=== PATIENT | male | born 1960 | race Caucasian/White ===

== ENCOUNTER 2019-07-16 13:44 | Emergency (ER) | payer MEDICAID ==
--- NOTE | 2019-07-16 13:59 | ED Physician Documentation ---
PD HPI DYSPNEA - Stated complaint Stated Complaint: SOA - Chief complaint Chief Complaint: Resp - History obtained from History obtained from: Patient - History of Present Illness Timing - onset: How many months ago (4) Timing - duration: Months (4) Timing - details: Gradual onset Improved by: Inhaler/neb Associated symptoms: Cough, Wheezing, Bilateral edema. No: Fever, Chest pain / discomfort, Palpitations Recently seen: Not recently seen - Additional information Additional information: Is a 58-year-old man is a very poor historianIs a 58-year-old man is a very poor historian from the clinic in [place] for evaluation of persistent shortness of breath and wheezing that they been unable to get under control with nebulizers. Patient says that a year ago he had cold that turned into pneumonia he took antibiotics for it and things had improved but about 4 months ago he again started getting some chest congestion and was using nebulizers that provided some relief but he ran out. It is been recently refilled but now he continues wheezing. He is coughing but not bringing up any phlegm despite tasting taking Mucinex. No fever. He denies a sore throat or stuffy nose. He has not had any chest pain and nausea or vomiting. Patient says his legs have been swelling for about a month but he related that to the fact that his TV is to the side of his bed and he frequently sits up on the edge of his bed to watch TV and will fall asleep sitting up. He thinks the swelling has been improving and the nurse practitioner at the clinic had called me and told me they had started him on Lasix. He denies any history of DVT. Denies any heart history of TX or CHF but he to has had a heart murmur in the past. He is not been treated with prednisone. He does admit to 30-year smoking history and quit 10 years ago but continued to use marijuana and meth up until about a month ago. He says he does not need it now that he is patient at the methadone clinic. Review of Systems Constitutional: denies: Fever Eyes: denies: Loss of vision Ears: denies: Ear pain Nose: denies: Congestion Throat: denies: Sore throat Cardiac: reports: Pedal edema. denies: Chest pain / pressure, Palpitations Respiratory: reports: Dyspnea, Cough, Wheezing GI: denies: Nausea, Vomiting : denies: Dysuria, Frequency Skin: reports: Other (Bruising to the abdominal wall due to running into the doorknobs in his new trailer) Musculoskeletal: reports: Extremity swelling. denies: Extremity pain Neurologic: denies: Numbness, Syncope Endocrine: reports: Other (Patient is a not a diabetic) PD PAST MEDICAL HISTORY - Past Medical History Cardiovascular: Hypertension - Past Surgical History Past Surgical History: Yes Ortho: Arthroscopic surgery - Present Medications Home Medications: Ambulatory Orders Medication Instructions Recorded Confirmed HYDROcod/ACETAM 5/325 [[place] 5/325] 1 ea PO Q6H PRN #10 tablet 11/24/15 Cephalexin [Keflex] 500 mg PO Q6H #28 capsule 04/13/16 Ibuprofen [Motrin] 400 mg PO Q6H PRN #30 tablet 04/13/16 Oxycodone HCl/Acetaminophen 1 each PO Q6HR PRN #15 tablet 04/13/16 [Percocet 5-325 mg Tablet] Sulfamethoxazole/Trimethoprim 1 each PO BID #14 tablet 04/13/16 [Bactrim Ds Tablet] predniSONE [Deltasone] 60 mg PO DAILY #15 tablet 07/16/19 - Allergies Allergies/Adverse Reactions: Allergies Allergy/AdvReac Type Severity Reaction Status Date / Time No Known Drug Allergies Allergy Verified 07/16/19 13:49 - Social History Does the pt smoke?: No Smoking Status: Never smoker Does the pt drink ETOH?: Yes Does the pt have substance abuse?: Yes - Immunizations Immunizations are current?: No Immunizations: TDAP >10years/unknown - POLST Patient has POLST: No PD ED PE NORMAL - Vitals Vital signs reviewed: Yes - General General: Alert and oriented X 3, No acute distress, Well developed/nourished, Other (Patient actually falls asleep talking to me in mid sentence.) - HEENT HEENT: Atraumatic, Moist mucous membranes, Other (No scleral icterus) - Neck Neck: No adenopathy - Cardiac Cardiac: RRR, No murmur, Strong equal pulses - Respiratory Respiratory: Other (Patient is able to speak in full sentences. There is audible wheezing and diffuse wheezing heard throughout the lung adorno.) - Abdomen Abdomen: Other (Obese tense abdomen. There is some linear bruising along the right costal margin without tenderness. Exam is limited by his body habitus.) - Derm Derm: Warm and dry. No: Normal color (He has a somewhat ashen complexion) - Extremities Extremities: No: No edema (There is 2+ pitting edema to his knees bilaterally. There is some erythema to the skin consistent with venous stasis. No calf tenderness.) - Neuro Neuro: Alert and oriented X 3, No motor deficit, No sensory deficit, Normal speech Results - Vitals Vitals: Vital Signs - 24 hr 07/16/19 07/16/19 07/16/19 13:49 14:20 14:23 Temperature 36.7 C Heart Rate 83 83 82 Respiratory 24 14 15 Rate Blood Pressure 176/105 H 173/120 H O2 Saturation 97 95 07/16/19 07/16/19 07/16/19 14:45 15:30 16:09 Temperature Heart Rate 79 82 82 Respiratory 15 24 14 Rate Blood Pressure 158/101 H O2 Saturation 100 07/16/19 17:00 Temperature Heart Rate 83 Respiratory 14 Rate Blood Pressure 166/114 H O2 Saturation 96 Oxygen O2 Source Room air - EKG (time done) 1356 Rate: Rate (enter#) (88) Rhythm: NSR Intervals: No: Wide QRS Ischemia: Other (No acute changes evident.) Other comments: Other comments (Artifact limits the evaluation of the EKG slightly.) Compare to prior EKG: Old EKG unavailable - Labs Labs: Laboratory Tests 07/16/19 07/16/19 07/16/19 14:04 14:04 14:04 WBC 6.8 RBC 3.91 L Hgb 11.0 L Hct 35.3 L MCV 90.3 MCH 28.1 MCHC 31.2 L RDW 14.6 Plt Count 188 MPV 9.8 Neut # (Auto) 4.4 Lymph # (Auto) 1.4 L [place] # (Auto) 0.6 Eos # (Auto) 0.4 Baso # (Auto) 0.0 Absolute Nucleated RBC 0.00 Nucleated RBC % 0.0 D-Dimer Bld Gas Analysis Time Sample Site ABG pH ABG pCO2 ABG pO2 ABG HCO3 ABG Total CO2 ABG O2 Saturation ABG Oximetry Spot Check ABG Base Excess Tera Test Room Air Sodium 139 Potassium 3.9 Chloride 101 Carbon Dioxide 28 Anion Gap 10.0 BUN 12 Creatinine 0.8 Estimated GFR (MDRD) 100 Glucose 100 Calcium 8.7 Total Bilirubin 0.8 AST 29 ALT 22 Alkaline Phosphatase 56 Troponin I High Sens 19.5 B-Natriuretic Peptide Total Protein 7.3 Albumin 3.9 Globulin 3.4 Albumin/Globulin Ratio 1.1 Lipase 32 Urine Color Urine Clarity Urine pH Ur Specific [place] Urine Protein Urine Glucose (UA) Urine Ketones Urine Occult Blood Urine Nitrite Urine Bilirubin Urine Urobilinogen Ur Leukocyte Esterase Ur Microscopic Review Urine Culture Comments 07/16/19 07/16/19 07/16/19 14:04 14:04 16:49 WBC RBC Hgb Hct MCV MCH MCHC RDW Plt Count MPV Neut # (Auto) Lymph # (Auto) [place] # (Auto) Eos # (Auto) Baso # (Auto) Absolute Nucleated RBC Nucleated RBC % D-Dimer 253.4 Bld Gas Analysis Time 1657 Sample Site RIGHT RADIAL ABG pH 7.43 ABG pCO2 44 ABG pO2 82 ABG HCO3 28.9 H ABG Total CO2 30.0 H ABG O2 Saturation 96 ABG Oximetry Spot Check 97 ABG Base Excess 5.0 H Tera Test POSITIVE Room Air YES Sodium Potassium Chloride Carbon Dioxide Anion Gap BUN Creatinine Estimated GFR (MDRD) Glucose Calcium Total Bilirubin AST ALT Alkaline Phosphatase Troponin I High Sens B-Natriuretic Peptide 35 Total Protein Albumin Globulin Albumin/Globulin Ratio Lipase Urine Color Urine Clarity Urine pH Ur Specific [place] Urine Protein Urine Glucose (UA) Urine Ketones Urine Occult Blood Urine Nitrite Urine Bilirubin Urine Urobilinogen Ur Leukocyte Esterase Ur Microscopic Review Urine Culture Comments 07/16/19 17:21 WBC RBC Hgb Hct MCV MCH MCHC RDW Plt Count MPV Neut # (Auto) Lymph # (Auto) [place] # (Auto) Eos # (Auto) Baso # (Auto) Absolute Nucleated RBC Nucleated RBC % D-Dimer Bld Gas Analysis Time Sample Site ABG pH ABG pCO2 ABG pO2 ABG HCO3 ABG Total CO2 ABG O2 Saturation ABG Oximetry Spot Check ABG Base Excess Tera Test Room Air Sodium Potassium Chloride Carbon Dioxide Anion Gap BUN Creatinine Estimated GFR (MDRD) Glucose Calcium Total Bilirubin AST ALT Alkaline Phosphatase Troponin I High Sens B-Natriuretic Peptide Total Protein Albumin Globulin Albumin/Globulin Ratio Lipase Urine Color YELLOW Urine Clarity CLEAR Urine pH 6.5 Ur Specific [place] 1.025 Urine Protein NEGATIVE Urine Glucose (UA) NEGATIVE Urine Ketones NEGATIVE Urine Occult Blood NEGATIVE Urine Nitrite NEGATIVE Urine Bilirubin NEGATIVE Urine Urobilinogen 0.2 (NORMAL) Ur Leukocyte Esterase NEGATIVE Ur Microscopic Review NOT INDICATED Urine Culture Comments NOT INDICATED - Rads (name of study) CXR Radiology: See rad report (neg acute) PD MEDICAL DECISION MAKING - ED course ED course: 1436: Patient received a DuoNeb and on auscultation of his lungs sounded somewhat less wheezy. Have ordered an albuterol. Labs and chest x-ray are pending. 1624: Patient remains with diffuse inspiratory next Tory wheezing despite multiple albuterol treatments. He is so somnolent he will just fall asleep sitting in the chair. He is always easily arousable. We talked about admission but he is initially hesitant. His chest x-ray is clear and CBC and BMP are normal. D-dimer is normal. 1707: Patient continued to be very wheezy despite the albuterol's and was so somnolent that I decided to do an ABG to make sure that he was not too hypercapnic. He reiterated that he is unwilling to be admitted to the hospital doctors hospital even though it is been recommended. Has capacity to make his own decision. He will be discharged with prescription for prednisone. He has albuterol at home with a nebulizer that he can use every 4 hours. He needs to follow back up with his primary care provider. He also has blood pressure medications that he should be taking at home says he has not taken that yet today but his blood pressure is quite elevated here. He was given an oral dose of clonidine 0.1 mg. Departure - Departure Disposition: 01 Home, Self Care Clinical Impression: Moderate COPD (chronic obstructive pulmonary disease) Condition: Good Instructions: ED COPD Flare Follow-Up: Leida Gomez ARNP [Primary Care Provider] - Prescriptions: predniSONE [Deltasone] 60 mg PO DAILY #15 tablet Comments: You are declining to be admitted to the hospital doctors hospital despite recommendations that you should stay. Take your albuterol every 4 hours at home by the nebulizer. Start the steroid medication tonight 3 tablets daily. Be sure to take your blood pressure medication at home. Return to the emergency department if you have difficulty breathing that is worse, you develop a fever, you pass out or other problems arise. Otherwise follow-up with your primary care provider for further management.
[2019-07-16] MEDS ORDERED: IPRATROPIUM/ALBUTEROL 3 ML NEB INH STA (14:13)
[2019-07-16] MEDS ORDERED: MAGNESIUM SULFATE 2 GRAM 2 GM/50 ML BAG IV ONE (14:15)
[2019-07-16] MEDS ORDERED: methylPREDNISolone SUCCINATE 125 MG/2 ML VIAL IVP STA (14:15)
[2019-07-16 14:21] LABS: BASOPHILS % (AUTO) 0.4 %; EOSINOPHILS # (AUTO) 0.4 10^3/uL (0.0-0.7); EOSINOPHILS % (AUTO) 5.7 %; LYMPHOCYTES # (AUTO) 1.4 10^3/uL (1.5-3.5); LYMPHOCYTES % (AUTO) 20.5 %; MEAN CORPUSCULAR HEMOGLOBIN 28.1 pg (27.0-31.0); MEAN CORPUSCULAR HGB CONC 31.2 g/dL (32.0-36.0); MEAN CORPUSCULAR VOLUME 90.3 fL (80.0-94.0); MEAN PLATELET VOLUME 9.8 fL (7.4-11.4); MONOCYTES # (AUTO) 0.6 10^3/uL (0.0-1.0); MONOCYTES % (AUTO) 8.2 %; NEUTROPHILS # (AUTO) 4.4 10^3/uL (1.5-6.6); NEUTROPHILS % (AUTO) 64.8 %; PLT - PLATELET COUNT 188 10^3/uL (130-450); RED BLOOD COUNT 3.91 10^6/uL (4.70-6.10); RED CELL DISTRIBUTION WIDTH 14.6 % (12.0-15.0); WHITE BLOOD COUNT 6.8 x10^3/uL (4.8-10.8)
[2019-07-16 14:35] LABS: ALBUMIN 3.9 g/dL (3.2-5.5); ALBUMIN/GLOBULIN RATIO 1.1 (1.0-2.2); BILIRUBIN,TOTAL 0.8 mg/dL (0.2-1.0); CALCIUM 8.7 mg/dL (8.5-10.3); CREATININE 0.8 mg/dL (0.6-1.2); TOTAL PROTEIN 7.3 g/dL (6.7-8.2)
[2019-07-16] MEDS ORDERED: ALBUTEROL NEB 2.5 MG/3 ML INH STA ×2 (14:35→15:33)
--- NOTE | 2019-07-16 14:35 | XRAY Report ---
Reason: chest pain Procedure Date: 07/16/2019 Accession Number: [id number] / [id number] Procedure: XR - Chest 1 View X-Ray CPT Code: 08608 Final Report FULL RESULT: EXAM: CHEST RADIOGRAPHY EXAM DATE: 07/16/2019 02:23 PM. CLINICAL HISTORY: Chest pain. COMPARISON: XR CHEST PA AND LAT 01/23/2009 2:21 PM. TECHNIQUE: 1 view. FINDINGS: Lungs/Pleura: No focal opacities evident. No pleural effusion. No pneumothorax. Mediastinum: Within exam limitations, the cardiomediastinal contour is normal. Other: None. IMPRESSION: Normal single view chest. RADIA
[2019-07-16 17:01] LABS: ABG PH 7.43 (7.35-7.45)
[2019-07-16 17:02] LABS: ABG HCO3 28.9 mmol/L (22.0-26.0); ABG PCO2 44 mmHg (34-45); ABG PO2 82 mmHg (80-100)
[2019-07-16 17:03] LABS: ABG OXYGEN SATURATION 96 % (94-98); ALLEN TEST POSITIVE
[2019-07-16] MEDS ORDERED: cloNIDine 0.1 MG TABLET PO STA (17:13)
[2019-07-16 17:23] LABS: MUDS CUTOFF CONCENTRATIONS CUTOFF CONC BELOW:
[2019-07-16 17:26] LABS: BILIRUBIN,URINE NEGATIVE (NEGATIVE); GLUCOSE, URINE (UA) NEGATIVE (NEGATIVE); KETONES,URINE (UA) NEGATIVE (NEGATIVE); LEUKOCYTE ESTERASE, URINE NEGATIVE (NEGATIVE); NITRITE,URINE NEGATIVE (NEGATIVE); OCCULT BLOOD,URINE NEGATIVE (NEGATIVE); PH,URINE 6.5 PH (5.0-7.5); PROTEIN,URINE NEGATIVE (NEGATIVE); UROBILINOGEN,URINE 0.2 (NORMAL) E.U./dL (NORMAL)
[2019-07-16 17:30] LABS: CLARITY,URINE CLEAR (CLEAR)
[2019-07-16 17:44] LABS: AMPHETAMINE SCREEN,URINE NEGATIVE (NEGATIVE); BENZODIAZEPINES SCREEN, URINE NEGATIVE (NEGATIVE); COCAINE SCREEN URINE NEGATIVE (NEGATIVE); METHADONE SCREEN, URINE POSITIVE (NEGATIVE); METHAMPHETAMINES SCREEN, URINE NEGATIVE (NEGATIVE); OPIATE SCREEN, URINE NEGATIVE (NEGATIVE); OXYCODONE SCREEN, URINE NEGATIVE (NEGATIVE); PROPOXYPHENE SCREEN, URINE NEGATIVE (NEGATIVE); TRICYCLIC ANTIDEPRESSANT,URINE NEGATIVE (NEGATIVE)
[2019-07-16 17:55] VITALS: BP 184/92
== END 2019-07-16 18:04 | disposition home or self-care (01) ==
LOC: ED 13:44
DX: J44.9 Chronic obstructive pulmonary disease, unspecified (principal); R40.0 Somnolence; I10 Essential (primary) hypertension
CPT/HCPCS: 36415; 36600; 71045; 80053; 80306; 81003; 82803; 83690; 83880; 84484; 85025; 85379; 93005; 94640; 96365; 96375; 99284; 99285; A9270; 81001; 87086

== ENCOUNTER 2025-01-04 13:51 | Inpatient (IN) ==
[2025-01-04 14:28] LABS: BASOPHILS % (AUTO) 0.3 %; EOSINOPHILS # (AUTO) 0.1 10^3/uL (0.0-0.7); EOSINOPHILS % (AUTO) 0.9 %; LYMPHOCYTES # (AUTO) 1.4 10^3/uL (1.5-3.5); LYMPHOCYTES % (AUTO) 17.3 %; MEAN CORPUSCULAR HEMOGLOBIN 28.8 pg (27.0-31.0); MEAN CORPUSCULAR HGB CONC 31.6 g/dL (32.0-36.0); MEAN CORPUSCULAR VOLUME 91.3 fL (80.0-94.0); MEAN PLATELET VOLUME 10.2 fL (7.4-11.4); MONOCYTES # (AUTO) 0.6 10^3/uL (0.0-1.0); MONOCYTES % (AUTO) 7.3 %; NEUTROPHILS # (AUTO) 5.9 10^3/uL (1.5-6.6); NEUTROPHILS % (AUTO) 73.9 %; PLT - PLATELET COUNT 200 10^3/uL (130-450); RED BLOOD COUNT 4.16 10^6/uL (4.70-6.10); RED CELL DISTRIBUTION WIDTH 14.1 % (12.0-15.0); WHITE BLOOD COUNT 7.9 x10^3/uL (4.8-10.8)
[2025-01-04 14:49] LABS: ALBUMIN 4.2 g/dL (3.2-5.5); ALBUMIN/GLOBULIN RATIO 1.8 (1.0-2.2); ALKALINE PHOSPHATASE 52 IU/L (42-121); ALT ALANINE AMINOTRANSFERASE 56 IU/L (10-60); AST ASPARTATE AMINOTRANSFERASE 69 IU/L (10-42); BILIRUBIN,TOTAL 0.4 mg/dL (0.2-1.0); BUN - BLOOD UREA NITROGEN 22 mg/dL (6-20); CALCIUM 8.7 mg/dL (8.5-10.3); CARBON DIOXIDE - CO2 27 mmol/L (21-32); CHLORIDE 100 mmol/L (101-111); ETOH - ETHANOL < 10.0 mg/dL; GFR - MDRD 76 (>89); GLUCOSE 104 mg/dL (74-104); SODIUM 134 mmol/L (135-145); TOTAL PROTEIN 6.6 g/dL (6.4-8.9)
[2025-01-04] MEDS: IPRATROPIUM/ALBUTEROL 3 ML NEB INH STA ×2 (14:53→15:35)
--- NOTE | 2025-01-04 15:07 | XRAY Report ---
PROCEDURE: XR Chest 1V INDICATIONS: sob TECHNIQUE: One view of the chest was acquired. COMPARISON: 07/16/2019. FINDINGS: Surgical changes and devices: None. Lungs and pleura: No pleural effusions or pneumothorax. No consolidation. There is eventration of the right hemidiaphragm. Mediastinum: Mediastinal contours appear normal. Heart size is normal. Bones and chest wall: No suspicious bony lesions. Overlying soft tissues appear unremarkable. IMPRESSION: Hyperinflation without acute cardiopulmonary process. New asymmetry of the hemidiaphragms. Reviewed by: Nichole Rashid MD on 01/04/2025 2:05 PM BRY Approved by: Nichole Rashid MD on 01/04/2025 2:05 PM BRY Station ID: [id number]
--- NOTE | 2025-01-04 15:11 | CT Report ---
PROCEDURE: CT Head WO INDICATIONS: head pain after fall TECHNIQUE: CT of the head was performed, without intravenous contrast. Reformats: Coronal and sagittal. For radiation dose reduction, the following was used: automated exposure control, adjustment of mA and/or kV according to patient size. COMPARISON: None. FINDINGS: Image quality: Diagnostic. On the limited by motion artifact. CSF spaces: Basal cisterns are patent. No extra-axial fluid collections. Ventricles are normal in size and shape. Brain: No midline shift. No intracranial mass effect or hemorrhage. Martinez- white matter interface is normal. No significant periventricular white matter hypoattenuation or volume loss. Skull and face: Calvarium and visualized facial bones are intact, without suspicious lesions. Sinuses: Visualized sinuses and mastoids are clear. IMPRESSION: No acute intracranial pathology. Reviewed by: Nichole Rashid MD on 01/04/2025 2:09 PM BRY Approved by: Nichole Rashid MD on 01/04/2025 2:09 PM BRY Station ID: [id number]
--- NOTE | 2025-01-04 15:13 | CT Report ---
PROCEDURE: CT Cervical Spine WO INDICATIONS: neck pain after fall TECHNIQUE: Noncontrast images acquired from the skull base to the T4 level. Sagittal and coronal reformats were then constructed. For radiation dose reduction, the following was used: automated exposure control, adjustment of mA and/or kV according to patient size. COMPARISON: None. FINDINGS: Image quality: Diagnostic. Mildly limited by motion artifact.. Bones: No fractures or dislocations. Visualized superior ribs are intact. There is grade 1 anterolisthesis of C3 on C4 and grade 1 retrolisthesis of C4 on C5 with moderate to severe degenerative changes at these levels. Degenerative changes are seen throughout the cervical spine with osteophytosis and disc space narrowing. Soft tissues: Prevertebral soft tissues are normal in thickness. No paravertebral hematomas. No apical pneumothoraces. IMPRESSION: No acute cervical osseous abnormality. Moderate to severe degenerative disc disease. Reviewed by: Nichole Rashid MD on 01/04/2025 2:12 PM AKDT Approved by: Nichole Rashid MD on 01/04/2025 2:12 PM AKDT Station ID: [id number]
[2025-01-04] MEDS: predniSONE 20 MG TABLET PO STA (15:45)
--- NOTE | 2025-01-04 16:24 | ED Physician Documentation ---
History of Present Illness Stated complaint Stated Complaint: GLF, HEAD STRIKE Chief complaint Chief Complaint: General History obtained from History obtained from: Patient History of Present Illness Timing: Prior to arrival Additonal information Additional information: Patient is a 64-year-old male presenting to the emergency department after a fall and increased shortness of breath going on for the past few days. Patient reports shortness of breath that startedPrior to the fall. He has past medical history remarkable for substance abuse. On arrival he is GCS 15 but mummbling and majority of history obtained from spouse who notes this is baseline and he is being worked up for mental status changes in outpatient setting. Meds/Allgy Home Medications Ambulatory Orders Medication Instructions Recorded Confirmed albuterol sulfate 90 mcg/actuation 2 inh inhalation QI D PRN shortness 01/04/25 01/05/25 aerosol inhaler of breath or wheezing bupropion HCl 300 mg 24 hr tablet, 300 mg PO DAILY 01/05/25 extended release gabapentin 300 mg capsule 300 mg PO DAILY 01/04/25 lisinopril 20 mg tablet 20 mg PO DAILY 01/04/2512/16 metoprolol succinate 50 mg 50 mg PO DAILY 01/04/25 tablet,extended release 24 hr naloxone 4 mg/actuation nasal spray 1 spray intranasal ONCE PRN opioid 01/04/25 01/05/25 overdose rosuvastatin 5 mg tablet 5 mg PO HS 01/04/25 01/04/25 methadone 10 mg/mL oral concentrate 175 mg PO DAILY 01/05/25 Allergies Allergies Allergy/AdvReac Type Severity Reaction Status Date / Time No Known Drug Allergies Allergy Verified 01/04/25 14:03 PFSH Active Problems All Active Problems (Updated 01/04/25 @ 18:35 by Juan Carlos Heart DNP) Asthma exacerbation (Acute) Acute hypoxic respiratory failure (Acute) Breath shortness (Acute) COPD exacerbation (Acute) Hypoxia (Acute) Laceration (Acute) Medical History Medical History (Updated 01/04/25 @ 18:35 by Juan Carlos Heart DNP) History of substance abuse History of alcohol dependence Chronic back pain Chronic neck pain Social History Social History (Updated 12/14/24 @ 22:22 by Farida Garcia RN) Smoking Status: Current some day smoker Number of Years Smoked: 30 Second hand tobacco smoke exposure: Yes Do you dip or chew tobacco?: No Do you vape?: No Patient requests smoking cessation consult: No Living Condition: Alone Relationship: Significant other Level: Assisted Home Mobility Equipment: Wheeled walker and Wheelchair Do you feel safe in your home environment?: Yes Suffered physical, verbal, emotional, or financial abuse?: No History of Abuse: No ETOH Use: None Frequency: Weekly ETOH Use Details: pt states alcoholic, quit using alcohol 6 yrs ago. Substance Use: cannabis (any form), crack/cocaine, amphetamines/met hamphetamines and opiods/painkillers POLST Patient has POLST: No Exam Exam Vital Signs: Vital Signs x48h Pulse Resp BP Pulse Ox O2 Flow Rate 01/04/25 18:00 73 30 H 197/132 H 93 2 Constitutional normal general appearance HENMT normocephalic, head/scalp atraumatic and hearing grossly normal bilaterally Eyes PERRL, EOMs intact bilaterally and conjunctivae normal Results Vitals Vitals: Vital Signs - 24 hr 01/04/25 14:04 01/04/25 14:55 01/04/25 15:03 Temperature 35.6 C L Temperature Source Temporal Artery Scan Pulse Rate 66 68 66 Respiratory Rate 18 20 24 Blood Pressure 173/124 H 172/121 H O2 Saturation 92 92 O2 Source Room air Nasal cannula Nasal cannula If not protocol: Oxygen Flow, liters/minute 2 2 Pain Intensity 9 01/04/25 15:33 01/04/25 15:37 01/04/25 16:15 Temperature Temperature Source Pulse Rate 74 74 80 Respiratory Rate 16 20 17 Blood Pressure 153/99 H O2 Saturation 94 86 L O2 Source Nasal cannula Nasal cannula Room air If not protocol: Oxygen Flow, liters/minute 4 Pain Intensity 01/04/25 16:31 01/04/25 18:00 Temperature Temperature Source Pulse Rate 72 73 Respiratory Rate 20 30 H Blood Pressure 197/132 H O2 Saturation 94 93 O2 Source Nasal cannula Nasal cannula If not protocol: Oxygen Flow, liters/minute 2 2 Pain Intensity 3 Oxygen O2 Source Nasal cannula Labs Labs: Laboratory Tests 01/04/25 01/04/25 01/04/25 14:24 16:40 17:00 WBC 7.9 RBC 4.16 L Hgb 12.0 L Hct 38.0 L MCV 91.3 MCH 28.8 MCHC 31.6 L RDW 14.1 Plt Count 200 MPV 10.2 Neut # (Auto) 5.9 Lymph # (Auto) 1.4 L [place] # (Auto) 0.6 Eos # (Auto) 0.1 Baso # (Auto) 0.0 Absolute Nucleated RBC 0.00 Nucleated RBC % 0.0 VBG pH 7.320 VBG pCO2 57.3 H VBG pO2 100.2 H VBG HCO3 29.8 H VBG Total CO2 31.6 H VBG O2 Saturation 99.0 H VBG Base Excess 3.5 H Sodium 134 L Potassium 4.0 Chloride 100 L Carbon Dioxide 27 Anion Gap 7.0 BUN 22 H Creatinine 1.0 Estimated GFR (MDRD) 76 L Glucose 104 Calcium 8.7 Total Bilirubin 0.4 AST 69 H ALT 56 Alkaline Phosphatase 52 Total Protein 6.6 Albumin 4.2 Globulin 2.4 Albumin/Globulin Ratio 1.8 Urine Color YELLOW Urine Clarity CLEAR Urine pH 6.0 Ur Specific [place] >=1.030 H Urine Protein 30 H Urine Glucose (UA) NEGATIVE Urine Ketones NEGATIVE Urine Occult Blood TRACE-INTA Urine Nitrite NEGATIVE Urine Bilirubin NEGATIVE Urine Urobilinogen 1 (NORMAL) Ur Leukocyte Esterase NEGATIVE Urine RBC 0-5 Urine WBC 0-3 Ur Squamous Epith Cells NONE SEEN Urine Crystals 11-25 Ca Oxalate Urine Bacteria None Seen Ur Microscopic Review INDICATED Urine Culture Comments NOT INDICATED Nasal Adenovirus (PCR) Nasal B. parapertussis DNA (PCR) Nasal Coronavir 229E PCR Nasal Coronavir HKU1 PCR Nasal Coronavir NL63 PCR Nasal Coronavir OC43 PCR Nasal Enterovir/Rhinovir PCR Nasal Influenza B PCR Nasal Influenza A PCR Nasal Parainfluen 1 PCR Nasal Parainfluen 2 PCR Nasal Parainfluen 3 PCR Nasal Parainfluen 4 PCR Nasal RSV (PCR) Nasal B.pertussis DNA PCR Nasal C.pneumoniae (PCR) Cash Human Metapneumo PCR Nasal M.pneumoniae (PCR) Nasal SARS-CoV-2 (PCR) Urine Opiates Screen NEGATIVE Ur Buprenorphine Scrn NEGATIVE Ur Oxycodone Screen NEGATIVE Urine Methadone Screen POSITIVE H Ur Barbiturates Screen NEGATIVE Ur Tricyclics Screen NEGATIVE Ur Phencyclidine Scrn NEGATIVE Ur Amphetamine Screen POSITIVE H U Methamphetamines Scrn POSITIVE H U Benzodiazepines Scrn NEGATIVE Urine Cocaine Screen NEGATIVE U Cannabinoids Screen POSITIVE H Ur Drug Screen Comment CUTOFF CONC BELOW: Ethyl Alcohol < 10.0 01/04/25 17:03 WBC RBC Hgb Hct MCV MCH MCHC RDW Plt Count MPV Neut # (Auto) Lymph # (Auto) [place] # (Auto) Eos # (Auto) Baso # (Auto) Absolute Nucleated RBC Nucleated RBC % VBG pH VBG pCO2 VBG pO2 VBG HCO3 VBG Total CO2 VBG O2 Saturation VBG Base Excess Sodium Potassium Chloride Carbon Dioxide Anion Gap BUN Creatinine Estimated GFR (MDRD) Glucose Calcium Total Bilirubin AST ALT Alkaline Phosphatase Total Protein Albumin Globulin Albumin/Globulin Ratio Urine Color Urine Clarity Urine pH Ur Specific [place] Urine Protein Urine Glucose (UA) Urine Ketones Urine Occult Blood Urine Nitrite Urine Bilirubin Urine Urobilinogen Ur Leukocyte Esterase Urine RBC Urine WBC Ur Squamous Epith Cells Urine Crystals Urine Bacteria Ur Microscopic Review Urine Culture Comments Nasal Adenovirus (PCR) NOT DETECTED Nasal B. parapertussis DNA (PCR) NOT DETECTED Nasal Coronavir 229E PCR NOT DETECTED Nasal Coronavir HKU1 PCR NOT DETECTED Nasal Coronavir NL63 PCR NOT DETECTED Nasal Coronavir OC43 PCR NOT DETECTED Nasal Enterovir/Rhinovir PCR NOT DETECTED Nasal Influenza B PCR NOT DETECTED Nasal Influenza A PCR NOT DETECTED Nasal Parainfluen 1 PCR NOT DETECTED Nasal Parainfluen 2 PCR NOT DETECTED Nasal Parainfluen 3 PCR NOT DETECTED Nasal Parainfluen 4 PCR NOT DETECTED Nasal RSV (PCR) NOT DETECTED Nasal B.pertussis DNA PCR NOT DETECTED Nasal C.pneumoniae (PCR) NOT DETECTED Cash Human Metapneumo PCR NOT DETECTED Nasal M.pneumoniae (PCR) NOT DETECTED Nasal SARS-CoV-2 (PCR) NOT DETECTED Urine Opiates Screen Ur Buprenorphine Scrn Ur Oxycodone Screen Urine Methadone Screen Ur Barbiturates Screen Ur Tricyclics Screen Ur Phencyclidine Scrn Ur Amphetamine Screen U Methamphetamines Scrn U Benzodiazepines Scrn Urine Cocaine Screen U Cannabinoids Screen Ur Drug Screen Comment Ethyl Alcohol PD Medical Decision Making ED course Complexity details: reviewed old records and reviewed results ED course: Patient is a 64-year-old male presenting to the emergency department after a fall and increased shortness of breath going on for the past few days. Patient reports shortness of breath that startedPrior to the fall. He has past medical history remarkable for substance abuse. On arrival he is GCS 15 but mummbling and majority of history obtained from spouse who notes this is baseline and he is being worked up for mental status changes in outpatient setting. Patient remains fatigued here in the ED. His head CT and neck scan showed no acute findings. Patient will be admitted for persistent hypoxia despite two duoneb treatments he remains at 85%. He is agreeable with this plan as is his spouse. He will follow up in the outpatient for these symptoms. Discussed with hospitalist Dr. Tucker who is agreeable with this plan. Discharge Plan Discharge Patient Disposition: 68 [facility] DC/Xfer Condition: Stable Clinical Impression: Hypoxia, COPD exacerbation, Breath shortness Interventions: ED Admission Assessment Last Done: 01/04/25 19:50
[2025-01-04 16:46] LABS: VBG BASE EXCESS 3.5 mmol/L (-2 - +2); VBG PCO2 57.3 mmHg (41-51); VBG PO2 100.2 mmHg (25-47); VBG TOTAL CO2 31.6 mmol/L (24-29)
[2025-01-04 17:16] LABS: COCAINE SCREEN URINE NEGATIVE (NEGATIVE); THC CANNABINOID SCREEN, URINE POSITIVE (NEGATIVE)
[2025-01-04 17:17] LABS: AMPHETAMINE SCREEN,URINE POSITIVE (NEGATIVE); BARBITURATE SCREEN,UR NEGATIVE (NEGATIVE); BENZODIAZEPINES SCREEN, URINE NEGATIVE (NEGATIVE); BUPRENORPHINE SCREEN, URINE NEGATIVE (NEGATIVE); METHADONE SCREEN, URINE POSITIVE (NEGATIVE); METHAMPHETAMINES SCREEN, URINE POSITIVE (NEGATIVE); OPIATE SCREEN, URINE NEGATIVE (NEGATIVE); OXYCODONE SCREEN, URINE NEGATIVE (NEGATIVE); TRICYCLIC ANTIDEPRESSANT,URINE NEGATIVE (NEGATIVE)
--- NOTE | 2025-01-04 17:27 | HISTORY & PHYSICAL EXAMINATION ---
Chief Complaint Chief Complaint Chief Complaint: Dyspnea History of Present Illness Admitted From Admitted From:: Home with History Obtained From History obtained from: at bedside History of Present Illness HPI Comment/Other: 64-year-old male with history of asthma, depression, polysubstance abuse including inhaled fentanyl and methamphetamine, Narcolepsy, NITESH noncompliant with CPAP, other history of bone spurs in the neck needing repair presents after fall. This follows secondary to his polysubstance abuse. Reports hitting head. In the ER, CT head and C-spine were performed without acute abnormality. CT C- spine did show moderate to severe degenerative disc disease, which patient is already supposed to be following up with neurosurgery about in the outpatient setting. Chest x-ray was performed which showed hyperinflation without acute cardiopulmonary process. Patient was given DuoNeb x 2, as well as an oral steroid without any improvement in his respiratory status. Given his history of asthma and negative chest x-ray, hospitalist was contacted for admission for hypoxic respiratory failure secondary to asthma exacerbation Meds/Allgy Home Medications Ambulatory Orders Medication Instructions Recorded Confirmed ibuprofen 400 mg tablet 400 mg PO Q6H PRN Pain #30 t abs 04/13/16 01/04/25 albuterol sulfate 90 mcg/actuation 2 inh inhalation GA N 01/04/25 01/04/25 aerosol inhaler bupropion HCl 300 mg 24 hr tablet, 300 mg PO .OD 01/0401/04/25 extended release gabapentin 300 mg capsule 300 mg PO 01/04/25 lisinopril 20 mg tablet 20 mg PO 01/04/25 metoprolol succinate 50 mg 50 mg PO 01/04/25 tablet,extended release 24 hr naloxone 4 mg/actuation nasal spray 1 spray intranasal PRN opioid 01/04/25 overdose rosuvastatin 5 mg tablet 5 mg PO HS 01/04/25 01/04/25 Allergies Allergies Allergy/AdvReac Type Severity Reaction Status Date / Time No Known Drug Allergies Allergy Verified 01/04/25 14:03 PFSH Active Problems All Active Problems (Updated 01/04/25 @ 18:35 by Juan Carlos Heart DNP) Asthma exacerbation (Acute) Acute hypoxic respiratory failure (Acute) Breath shortness (Acute) COPD exacerbation (Acute) Hypoxia (Acute) Laceration (Acute) Medical History Medical History (Updated 01/04/25 @ 18:35 by Juan Carlos Heart DNP) History of substance abuse History of alcohol dependence Chronic back pain Chronic neck pain Social History Social History (Updated 12/14/24 @ 22:22 by Farida Garcia RN) Smoking Status: Current some day smoker Number of Years Smoked: 30 Second hand tobacco smoke exposure: Yes Do you dip or chew tobacco?: No Do you vape?: No Patient requests smoking cessation consult: No Living Condition: Alone Relationship: Level: Assisted Home Mobility Equipment: Wheeled walker and Wheelchair Do you feel safe in your home environment?: Yes Suffered physical, verbal, emotional, or financial abuse?: No History of Abuse: No ETOH Use: None Frequency: Weekly ETOH Use Details: pt states alcoholic, quit using alcohol 6 yrs ago. Substance Use: cannabis (any form), crack/cocaine, amphetamines/methamphetamines and opiods/painkillers POLST Patient has POLST: No Review of Systems Status of ROS: 10 or more systems reviewed and unremarkable except as noted in history and below Constitutional Denies: Fever or Chills Cardiovascular Reports: shortness of breath with exertion; Denies: chest pain or palpitations Respiratory Reports: Shortness of breath, Cough, Wheezing and Apnea (NITESH); Denies: Sputum production Gastrointestinal Denies: Abdominal pain or Abdominal distention Genitourinary Reports: Flank pain Musculoskeletal Reports: Back pain Neurological Denies: General weakness Allergic/Immunologic Reports: Wheezing Exam Exam Vital Signs: Vital Signs x48h Temp Pulse Pulse Resp BP BP Pulse Ox 01/04/25 20:43 36.6 C 70 17 148/98 H 96 01/04/25 19:50 70 20 190/109 H 93 01/04/25 18:00 73 30 H 197/132 H 93 01/04/25 16:31 72 20 94 01/04/25 16:15 80 17 86 L 01/04/25 15:37 74 20 01/04/25 15:33 74 16 153/99 H 94 01/04/25 15:03 66 24 172/121 H 92 01/04/25 14:55 68 20 01/04/25 14:04 35.6 C L 66 18 173/124 H 92 O2 Flow Rate 01/04/25 20:43 01/04/25 19:50 2 01/04/25 18:00 2 01/04/25 16:31 2 01/04/25 16:15 01/04/25 15:37 01/04/25 15:33 4 01/04/25 15:03 2 01/04/25 14:55 2 01/04/25 14:04 Constitutional Ill-appearing middle-aged male in no acute distress HENMT normocephalic and head/scalp atraumatic Eyes EOMs intact bilaterally and conjunctivae normal Neck/C-Spine cervical spine nontender and cervical full ROM noted Soft c-collar in place Lymph no lymphadenopathy noted Chest inspection of chest normal Respiratory breath sounds equal bilaterally Expiratory wheezes Cardiovascular normal heart rate noted and regular rhythm noted Gastrointestinal abdomen normal to inspection and abdomen soft to palpation Genitourinary CVA tenderness noted Back/Pelvis spine normal to inspection Extremities normal to inspection and normal to palpation Neurology GCS 15 Nods off during interview due to history of narcolepsy combined with polysubstance abuse Psychiatry oriented x3 Skin Scattered abrasions Conclusion/Plan Problem List (1) Acute hypoxic respiratory failure: Plan: Reporting wheezing and dyspnea Chest x-ray on presentation shows hyperinflation without acute process Denies history of COPD, but does report history of asthma Respiratory viral panel negative, this is likely secondary to an asthma exacerbation (2) Asthma exacerbation: Plan: Takes albuterol as needed at home for asthma He received DuoNeb x 2 in the ER DuoNeb RT 4 times daily Pulmicort twice daily Received 60 mg prednisone in the ER, I will continue that daily Lung inflation, bronchodilator protocols ordered (3) History of substance abuse: Plan: Reported snorting fentanyl as well as methamphetamines at home. Also reports cannabis use UDS positive for methadone, amphetamines, cannabinoids Ordered clonidine 0.1 mg p.o. twice daily to help with withdrawal symptoms I am unsure how much of his grogginess is from drug abuse and how much is his narcolepsy and untreated sleep apnea (4) Chronic neck pain: Plan: Wearing a soft c-collar Established with neurosurgery already Reports his neck pain is because of a bone spur in his neck that he is managing in the outpatient setting Plan Admit inpatient med floor Full code His is his surrogate decision-maker Lab Results Lab results reviewed: Yes 01/04/25 14:24 01/04/25 14:24 Diagnostic Imaging Results Diagnostic Imaging Results: positive Final report reviewed Core Measures Anticipated LOS I expect patient to be DC'd or transferred within 96 hours.: Yes DVT/VTE - Prophylaxis VTE/DVT Prophylaxis med ordered at admit?: Yes
[2025-01-04 18:16] LABS: BILIRUBIN,URINE NEGATIVE (NEGATIVE); GLUCOSE, URINE (UA) NEGATIVE (NEGATIVE); KETONES,URINE (UA) NEGATIVE (NEGATIVE); LEUKOCYTE ESTERASE, URINE NEGATIVE (NEGATIVE); NITRITE,URINE NEGATIVE (NEGATIVE); OCCULT BLOOD,URINE TRACE-INTA (NEGATIVE); PROTEIN,URINE 30 mg/dL (NEGATIVE); UROBILINOGEN,URINE 1 (NORMAL) E.U./dL (NORMAL)
[2025-01-04 18:16] LABS: B. PARAPERTUSSIS- RESP PCR PAN NOT DETECTED; B. PERTUSSIS- RESP PCR PANEL NOT DETECTED; C. PNEUMONIAE- RESP PCR PANEL NOT DETECTED; CORONAVIRUS 229E-RESP PCR NOT DETECTED; CORONAVIRUS HKU1-RESP PCR NOT DETECTED; CORONAVIRUS NL63-RESP PCR NOT DETECTED; CORONAVIRUS OC43-RESP PCR NOT DETECTED; HUMAN METAPNEUMOVIRUS NOT DETECTED; INFLUENZA A- RESP PCR PANEL NOT DETECTED; INFLUENZA B - RESP PCR PANEL NOT DETECTED; M. PNEUMONIAE- RESP PCR PANEL NOT DETECTED; PARAINFLUENZA VIRUS 1 NOT DETECTED; PARAINFLUENZA VIRUS 2 NOT DETECTED; PARAINFLUENZA VIRUS 4 NOT DETECTED; RHINOVIRUS/ENTEROVIRUS NOT DETECTED; RSV- RESP PCR PANEL NOT DETECTED; SARS-CoV-2 -RESP PCR PANEL NOT DETECTED
[2025-01-04 18:17] LABS: CLARITY,URINE CLEAR (CLEAR)
[2025-01-04 18:30] LABS: BACTERIA,URINE None Seen /HPF (None Seen); CRYSTALS,URINE 11-25 Ca Oxalate /LPF; RBC,URINE 0-5 /HPF (0-5); SQUAMOUS EPITHELIAL CELL,UR NONE SEEN (<= Few); WBC,URINE 0-3 /HPF (0-3)
[2025-01-04] MEDS ORDERED: ONDANSETRON 4 MG/2 ML VIAL IVP PRN (20:30)
[2025-01-04] MEDS ORDERED: SODIUM CHLORIDE FLUSH 0.9% 10 ML SYRINGE IVP PRN (20:30)
[2025-01-04] MEDS ORDERED: ONDANSETRON ODT 4 MG TABLET TL PRN (20:30)
[2025-01-04] MEDS: ACETAMINOPHEN 325 MG TABLET PO PRN (21:03)
[2025-01-05] MEDS: SODIUM CHLORIDE FLUSH 0.9% 10 ML SYRINGE IVP SCH (00:10)
[2025-01-05] MEDS: cloNIDine 0.1 MG TABLET PO SCH ×2 (00:11→07:34)
[2025-01-05 04:47] LABS: HGB - HEMOGLOBIN 11.9 g/dL (14.0-18.0); LYMPHOCYTES # (AUTO) 0.6 10^3/uL (1.5-3.5); LYMPHOCYTES % (AUTO) 11.4 %; MEAN CORPUSCULAR HEMOGLOBIN 29.2 pg (27.0-31.0); MEAN CORPUSCULAR HGB CONC 32.2 g/dL (32.0-36.0); MEAN CORPUSCULAR VOLUME 90.9 fL (80.0-94.0); MEAN PLATELET VOLUME 10.9 fL (7.4-11.4); MONOCYTES # (AUTO) 0.3 10^3/uL (0.0-1.0); MONOCYTES % (AUTO) 5.1 %; NEUTROPHILS # (AUTO) 4.1 10^3/uL (1.5-6.6); NEUTROPHILS % (AUTO) 83.3 %; PLT - PLATELET COUNT 171 10^3/uL (130-450); RED BLOOD COUNT 4.07 10^6/uL (4.70-6.10); RED CELL DISTRIBUTION WIDTH 13.8 % (12.0-15.0); WHITE BLOOD COUNT 4.9 x10^3/uL (4.8-10.8)
[2025-01-05 05:10] LABS: CALCIUM 8.6 mg/dL (8.5-10.3); POTASSIUM 4.4 mmol/L (3.5-4.5)
[2025-01-05] MEDS: BUDESONIDE 0.5 MG/2 ML NEB INH SCH (07:04)
[2025-01-05] MEDS: IPRATROPIUM/ALBUTEROL 3 ML NEB INH SCH (07:04)
[2025-01-05] MEDS: predniSONE 20 MG TABLET PO SCH (08:13)
[2025-01-05] MEDS: ENOXAPARIN 40 MG/0.4 ML SYRINGE SUBQ SCH (08:14)
--- NOTE | 2025-01-05 12:02 | PHARMACY PROGRESS NOTE ---
Best Possible Medication History Admit Date and Time: 01/04/25 [id number] Home Medications Medication Instructions Recorded Confirmed Type albuterol sulfate 90 mcg/actuation 2 inh inhalation QI D PRN shortness 01/04/25 01/05/25 History aerosol inhaler of breath or wheezing bupropion HCl 300 mg 24 hr tablet, 300 mg PO DAILY 01/05/25 History extended release gabapentin 300 mg capsule 300 mg PO DAILY 01/04/25 History lisinopril 20 mg tablet 20 mg PO DAILY 01/04/2512/16 History metoprolol succinate 50 mg 50 mg PO DAILY 01/04/25 History tablet,extended release 24 hr naloxone 4 mg/actuation nasal spray 1 spray intranasal ONCE PRN opioid 01/04/25 01/05/25 History overdose rosuvastatin 5 mg tablet 5 mg PO HS 01/04/25 01/04/25 History methadone 10 mg/mL oral concentrate 175 mg PO DAILY 01/05/25 History Processed by: Pharmacy Medications reviewed in ED?: No Medication History completed: Yes Patient Interview: Completed Secondary Source(s): Caregiver (Adore @ [facility] [phone]), Pharmacy records and Insurance records [facility] Statement: As the person ultimately responsible for medication therapy, providers are able to order a medication from an existing home medication list in [facility] via the "Reconcile Routine" prior to Confirmation of that medication by learning support aide. Such practice is discouraged except when the physician, in their clinical judgment, deems that a medical need exists for a medication without regard to previous use.
[2025-01-05] MEDS: METHADONE 50 MG/5 ML ORAL SYRINGE PO SCH (13:34)
--- NOTE | 2025-01-05 14:50 | PROVIDER PROGRESS NOTE ---
Subjective Prog Note Date Prog Note Date: 01/05/25 Subjective Pt reports feeling: Improved Current Medications Current Medications Current Medications: Current Medications Generic Name Dose Route Start Last Admin Trade Name Freq PRN Reason Stop Dose Admin Acetaminophen 650 mg 01/04/25 20:30 01/05/25 05:46 Acetaminophen 325 Mg Tablet PO 650 mg Q4HR PRN Administration Pain 1 to 4, or Fever Albuterol/Ipratropium 3 ml 01/05/25 07:00 01/05/25 07:04 Ipratropium/Albuterol 3 Ml Neb INH 3 ml RTQID TONE Administration Budesonide 0.5 mg 01/05/25 07:00 01/05/25 07:04 Budesonide 0.5 Mg/2 Ml Neb INH 0.5 mg RTBID TONE Administration Clonidine HCl 0.1 mg 01/05/25 00:30 01/05/25 08:14 Clonidine 0.1 Mg Tablet PO 0.1 mg BID TONE Administration Enoxaparin Sodium 40 mg 01/05/25 09:00 01/05/25 08:14 Enoxaparin 40 Mg/0.4 Ml Syringe SUBQ 40 mg DAILY TONE Administration Ondansetron HCl 4 mg 01/04/25 20:30 Ondansetron Odt 4 Mg Tablet TL Q6HR PRN Nausea / Vomiting Ondansetron HCl 4 mg 01/04/25 20:30 Ondansetron 4 Mg/2 Ml Vial IVP Q6HR PRN Nausea / Vomiting Prednisone 60 mg 01/05/25 08:00 01/05/25 08:13 Prednisone 20 Mg Tablet PO 60 mg DAILYWM TONE Administration Sodium Chloride 10 ml 01/04/25 20:30 Sodium Chloride Flush 0.9% 10 Ml Syringe IVP PRN PRN NEEDED PER PROVIDER ORDERS Sodium Chloride 10 ml 01/05/25 01:00 01/05/25 08:14 Sodium Chloride Flush 0.9% 10 Ml Syringe IVP 10 ml 0100,0900,1700 TONE Administration Objective Vital Signs/Intake & Output Reviewed Vital Signs: Yes Vital Signs: Vital Signs x48h Temp Pulse Pulse Resp BP Pulse Ox O2 Flow Rate 01/05/25 07:58 36.5 C 65 15 128/80 94 01/05/25 07:07 70 20 2 01/05/25 05:00 36.7 C 68 18 129/79 95 Intake & Output: Intake & Output 01/02/25 01/03/25 01/04/25 01/05/25 23:59 23:59 23:59 23:59 Intake Total 540 / 540 Output Total 600 / 600 Balance -60 / -60 Weight (kg) 85 kg Objective General Appearance: positive No acute distress, Alert and Other (Hunched over forward in bed) Eyes Bilateral: positive Normal inspection ENT: positive ENT inspection nml Neck: positive Nml inspection Respiratory: positive Chest non-tender, No respiratory distress and Wheezes Cardiovascular: positive Regular rate & rhythm Abdomen: positive Non-tender Back: positive Nml inspection Skin: positive Color nml Extremities: positive Non-tender Neurologic/Psychiatric: positive Oriented x3 Lab Results 01/05/25 04:16 01/05/25 04:16 Other Labs: Lab Results x24hrs 01/05/25 01/04/25 01/04/25 Range/Units 04:16 17:03 17:00 WBC 4.9 (4.8-10.8) x10^3/uL RBC 4.07 L (4.70-6.10) 10^6/uL Hgb 11.9 L (14.0-18.0) g/dL Hct 37.0 L (42.0-52.0) % MCV 90.9 (80.0-94.0) fL MCH 29.2 (27.0-31.0) pg MCHC 32.2 (32.0-36.0) g/dL RDW 13.8 (12.0-15.0) % Plt Count 171 (130-450) 10^3/uL MPV 10.9 (7.4-11.4) fL Neut # (Auto) 4.1 (1.5-6.6) 10^3/uL Lymph # (Auto) 0.6 L (1.5-3.5) 10^3/uL Eagle # (Auto) 0.3 (0.0-1.0) 10^3/uL Eos # (Auto) 0.0 (0.0-0.7) 10^3/uL Baso # (Auto) 0.0 (0.0-0.1) 10^3/uL Absolute Nucleated RBC 0.00 x10^3/uL Nucleated RBC % 0.0 /100WBC VBG pH (7.31-7.41) VBG pCO2 (41-51) mmHg VBG pO2 (25-47) mmHg VBG HCO3 (23-28) mmol/L VBG Total CO2 (24-29) mmol/L VBG O2 Saturation (60-80) % VBG Base Excess (-2 - +2) mmol/L Sodium 136 (135-145) mmol/L Potassium 4.4 (3.5-4.5) mmol/L Chloride 102 (101-111) mmol/L Carbon Dioxide 29 (21-32) mmol/L Anion Gap 5.0 L (6-13) BUN 19 (6-20) mg/dL Creatinine 1.0 (0.6-1.3) mg/dL Estimated GFR (MDRD) 76 L (>89) Glucose 132 H (74-104) mg/dL Calcium 8.6 (8.5-10.3) mg/dL Total Bilirubin (0.2-1.0) mg/dL AST (10-42) IU/L ALT (10-60) IU/L Alkaline Phosphatase (42-121) IU/L Total Protein (6.4-8.9) g/dL Albumin (3.2-5.5) g/dL Globulin (2.1-4.2) g/dL Albumin/Globulin Ratio (1.0-2.2) Urine Color YELLOW Urine Clarity CLEAR (CLEAR) Urine pH 6.0 (5.0-7.5) PH Ur Specific [place] >=1.030 H (1.002-1.030) Urine Protein 30 H (NEGATIVE) mg/dL Urine Glucose (UA) NEGATIVE (NEGATIVE) mg/dL Urine Ketones NEGATIVE (NEGATIVE) mg/dL Urine Occult Blood TRACE-INTA (NEGATIVE) Urine Nitrite NEGATIVE (NEGATIVE) Urine Bilirubin NEGATIVE (NEGATIVE) Urine Urobilinogen 1 (NORMAL) (NORMAL) E.U./dL Ur Leukocyte Esterase NEGATIVE (NEGATIVE) Urine RBC 0-5 (0-5) /HPF Urine WBC 0-3 (0-3) /HPF Ur Squamous Epith Cells NONE SEEN (<= Few) Urine Crystals 11-25 Ca Oxalate /LPF Urine Bacteria None Seen (None Seen) /HPF Ur Microscopic Review INDICATED Urine Culture Comments NOT INDICATED Nasal Adenovirus (PCR) NOT DETECTED Nasal B. parapertussis DNA (PCR) NOT DETECTED Nasal Coronavir 229E PCR NOT DETECTED Nasal Coronavir HKU1 PCR NOT DETECTED Nasal Coronavir NL63 PCR NOT DETECTED Nasal Coronavir OC43 PCR NOT DETECTED Nasal Enterovir/Rhinovir PCR NOT DETECTED Nasal Influenza B PCR NOT DETECTED Nasal Influenza A PCR NOT DETECTED Nasal Parainfluen 1 PCR NOT DETECTED Nasal Parainfluen 2 PCR NOT DETECTED Nasal Parainfluen 3 PCR NOT DETECTED Nasal Parainfluen 4 PCR NOT DETECTED Nasal RSV (PCR) NOT DETECTED Nasal B.pertussis DNA PCR NOT DETECTED Nasal C.pneumoniae (PCR) NOT DETECTED Cash Human Metapneumo PCR NOT DETECTED Nasal M.pneumoniae (PCR) NOT DETECTED Nasal SARS-CoV-2 (PCR) NOT DETECTED Urine Opiates Screen NEGATIVE (NEGATIVE) Ur Buprenorphine Scrn NEGATIVE (NEGATIVE) Ur Oxycodone Screen NEGATIVE (NEGATIVE) Urine Methadone Screen POSITIVE H (NEGATIVE) Ur Barbiturates Screen NEGATIVE (NEGATIVE) Ur Tricyclics Screen NEGATIVE (NEGATIVE) Ur Phencyclidine Scrn NEGATIVE (NEGATIVE) Ur Amphetamine Screen POSITIVE H (NEGATIVE) U Methamphetamines Scrn POSITIVE H (NEGATIVE) U Benzodiazepines Scrn NEGATIVE (NEGATIVE) Urine Cocaine Screen NEGATIVE (NEGATIVE) U Cannabinoids Screen POSITIVE H (NEGATIVE) Ur Drug Screen Comment CUTOFF CONC BELOW: Ethyl Alcohol mg/dL 01/04/25 01/04/25 Range/Units 16:40 14:24 WBC 7.9 (4.8-10.8) x10^3/uL RBC 4.16 L (4.70-6.10) 10^6/uL Hgb 12.0 L (14.0-18.0) g/dL Hct 38.0 L (42.0-52.0) % MCV 91.3 (80.0-94.0) fL MCH 28.8 (27.0-31.0) pg MCHC 31.6 L (32.0-36.0) g/dL RDW 14.1 (12.0-15.0) % Plt Count 200 (130-450) 10^3/uL MPV 10.2 (7.4-11.4) fL Neut # (Auto) 5.9 (1.5-6.6) 10^3/uL Lymph # (Auto) 1.4 L (1.5-3.5) 10^3/uL [place] # (Auto) 0.6 (0.0-1.0) 10^3/uL Eos # (Auto) 0.1 (0.0-0.7) 10^3/uL Baso # (Auto) 0.0 (0.0-0.1) 10^3/uL Absolute Nucleated RBC 0.00 x10^3/uL Nucleated RBC % 0.0 /100WBC VBG pH 7.320 (7.31-7.41) VBG pCO2 57.3 H (41-51) mmHg VBG pO2 100.2 H (25-47) mmHg VBG HCO3 29.8 H (23-28) mmol/L VBG Total CO2 31.6 H (24-29) mmol/L VBG O2 Saturation 99.0 H (60-80) % VBG Base Excess 3.5 H (-2 - +2) mmol/L Sodium 134 L (135-145) mmol/L Potassium 4.0 (3.5-4.5) mmol/L Chloride 100 L (101-111) mmol/L Carbon Dioxide 27 (21-32) mmol/L Anion Gap 7.0 (6-13) BUN 22 H (6-20) mg/dL Creatinine 1.0 (0.6-1.3) mg/dL Estimated GFR (MDRD) 76 L (>89) Glucose 104 (74-104) mg/dL Calcium 8.7 (8.5-10.3) mg/dL Total Bilirubin 0.4 (0.2-1.0) mg/dL AST 69 H (10-42) IU/L ALT 56 (10-60) IU/L Alkaline Phosphatase 52 (42-121) IU/L Total Protein 6.6 (6.4-8.9) g/dL Albumin 4.2 (3.2-5.5) g/dL Globulin 2.4 (2.1-4.2) g/dL Albumin/Globulin Ratio 1.8 (1.0-2.2) Urine Color Urine Clarity (CLEAR) Urine pH (5.0-7.5) PH Ur Specific [place] (1.002-1.030) Urine Protein (NEGATIVE) mg/dL Urine Glucose (UA) (NEGATIVE) mg/dL Urine Ketones (NEGATIVE) mg/dL Urine Occult Blood (NEGATIVE) Urine Nitrite (NEGATIVE) Urine Bilirubin (NEGATIVE) Urine Urobilinogen (NORMAL) E.U./dL Ur Leukocyte Esterase (NEGATIVE) Urine RBC (0-5) /HPF Urine WBC (0-3) /HPF Ur Squamous Epith Cells (<= Few) Urine Crystals /LPF Urine Bacteria (None Seen) /HPF Ur Microscopic Review Urine Culture Comments Nasal Adenovirus (PCR) Nasal B. parapertussis DNA (PCR) Nasal Coronavir 229E PCR Nasal Coronavir HKU1 PCR Nasal Coronavir NL63 PCR Nasal Coronavir OC43 PCR Nasal Enterovir/Rhinovir PCR Nasal Influenza B PCR Nasal Influenza A PCR Nasal Parainfluen 1 PCR Nasal Parainfluen 2 PCR Nasal Parainfluen 3 PCR Nasal Parainfluen 4 PCR Nasal RSV (PCR) Nasal B.pertussis DNA PCR Nasal C.pneumoniae (PCR) Cash Human Metapneumo PCR Nasal M.pneumoniae (PCR) Nasal SARS-CoV-2 (PCR) Urine Opiates Screen (NEGATIVE) Ur Buprenorphine Scrn (NEGATIVE) Ur Oxycodone Screen (NEGATIVE) Urine Methadone Screen (NEGATIVE) Ur Barbiturates Screen (NEGATIVE) Ur Tricyclics Screen (NEGATIVE) Ur Phencyclidine Scrn (NEGATIVE) Ur Amphetamine Screen (NEGATIVE) U Methamphetamines Scrn (NEGATIVE) U Benzodiazepines Scrn (NEGATIVE) Urine Cocaine Screen (NEGATIVE) U Cannabinoids Screen (NEGATIVE) Ur Drug Screen Comment Ethyl Alcohol < 10.0 mg/dL Assessment/Plan Problem List (1) Acute hypoxic respiratory failure: Impression: Reporting wheezing and dyspnea Chest x-ray on presentation shows hyperinflation without acute process Denies history of COPD, but does report history of asthma Respiratory viral panel negative, this is likely secondary to an asthma exacerbation Manage as below 01/05/2025: Patient is off and on 2 L O2. Dyspnea has improved. Continuing current management as below, anticipate medical readiness tomorrow (2) Asthma exacerbation: Impression: Takes albuterol as needed at home for asthma He received DuoNeb x 2 in the ER DuoNeb RT 4 times daily Pulmicort twice daily Received 60 mg prednisone in the ER, I will continue that daily Lung inflation, bronchodilator protocols ordered 01/05/2025: Continuing nebs, prednisone 60 mg. (3) History of substance abuse: Impression: Reported snorting fentanyl as well as methamphetamines at home. Also reports cannabis use UDS positive for methadone, amphetamines, cannabinoids Ordered clonidine 0.1 mg p.o. twice daily to help with withdrawal symptoms I am unsure how much of his grogginess is from drug abuse and how much is his narcolepsy and untreated sleep apnea 01/05/2025: Patient reports taking methadone at the [facility]. Pharmacy confirms that he takes 175 daily, we are restarting this (4) Chronic neck pain: Impression: Established with neurosurgery outpatient, no acute concerns
[2025-01-05 23:58] VITALS: O2SAT 94
[2025-01-06 05:07] LABS: BASOPHILS % (AUTO) 0.2 %; EOSINOPHILS % (AUTO) 0.3 %; HCT - HEMATOCRIT 37.7 % (42.0-52.0); HGB - HEMOGLOBIN 11.7 g/dL (14.0-18.0); LYMPHOCYTES # (AUTO) 1.9 10^3/uL (1.5-3.5); LYMPHOCYTES % (AUTO) 21.5 %; MEAN CORPUSCULAR HEMOGLOBIN 29.3 pg (27.0-31.0); MEAN CORPUSCULAR VOLUME 94.3 fL (80.0-94.0); MEAN PLATELET VOLUME 11.1 fL (7.4-11.4); MONOCYTES # (AUTO) 0.8 10^3/uL (0.0-1.0); MONOCYTES % (AUTO) 9.2 %; NEUTROPHILS % (AUTO) 68.6 %; PLT - PLATELET COUNT 176 10^3/uL (130-450); RED CELL DISTRIBUTION WIDTH 14.2 % (12.0-15.0); WHITE BLOOD COUNT 8.8 x10^3/uL (4.8-10.8)
[2025-01-06 05:26] LABS: CALCIUM 8.7 mg/dL (8.5-10.3); CREATININE 1.2 mg/dL (0.6-1.3); POTASSIUM 4.3 mmol/L (3.5-4.5)
--- NOTE | 2025-01-06 11:11 | Discharge Summary ---
Discharge Summary Admit Date: 01/04/25 Discharge Date: 01/06/25 Discharging Provider: Juan Carlos Heart NP Primary Care Provider: Briseida Vallceillo Code Status: Attempt Resuscitation DIAGNOSES Admission Diagnoses: Acute hypoxemic respiratory failure Asthma exacerbation History of substance abuse Chronic neck pain Discharge Diagnoses with Status of Each Condition: Acute hypoxemic respiratory failureresolved Asthma exacerbationresolved, discharging on steroids History of substance abusechronic Chronic neck painalready established with neurosurgery HPI History of Present Illness: 64-year-old male with history of asthma, depression, polysubstance abuse including inhaled fentanyl and methamphetamine, Narcolepsy, NITESH noncompliant with CPAP, other history of bone spurs in the neck needing repair presents after fall. This follows secondary to his polysubstance abuse. Reports hitting head. In the ER, CT head and C-spine were performed without acute abnormality. CT C- spine did show moderate to severe degenerative disc disease, which patient is already supposed to be following up with neurosurgery about in the outpatient setting. Chest x-ray was performed which showed hyperinflation without acute cardiopulmonary process. Patient was given DuoNeb x 2, as well as an oral steroid without any improvement in his respiratory status. Given his history of asthma and negative chest x-ray, hospitalist was contacted for admission for hypoxic respiratory failure secondary to asthma exacerbation HOSPITAL COURSE Hospital Course: Patient was admitted in the hospital and started on high-dose steroid. Over 2 days, his oxygen requirements decreased, and he is now on room air. His dyspnea has significantly improved. He is being discharged with another few days of prednisone 60 mg p.o. daily and have started him on Pulmicort twice daily. He has been instructed to follow-up with his primary care provider to ensure resolution and to further manage his asthma at home ALLERGIES Allergies Allergy/AdvReac Type Severity Reaction Status Date / Time No Known Drug Allergies Allergy Verified 01/04/25 14:03 MEDICATIONS Ambulatory Orders Medication Instructions Recorded Confirmed albuterol sulfate 90 mcg/actuation 2 inh inhalation QI D PRN shortness 01/04/25 01/05/25 aerosol inhaler of breath or wheezing bupropion HCl 300 mg 24 hr tablet, 300 mg PO DAILY 01/05/25 extended release gabapentin 300 mg capsule 300 mg PO DAILY 01/04/25 lisinopril 20 mg tablet 20 mg PO DAILY 01/04/2512/16/25 metoprolol succinate 50 mg 50 mg PO DAILY 01/04/25 tablet,extended release 24 hr naloxone 4 mg/actuation nasal spray 1 spray intranasal ONCE PRN opioid 01/04/25 01/05/25 overdose rosuvastatin 5 mg tablet 5 mg PO HS 01/04/25 01/04/25 methadone 10 mg/mL oral concentrate 175 mg PO DAILY 01/05/25 budesonide 90 mcg/actuation breath 1 inh inhalation BI D #1 ea 01/06/25 activated powder inhaler prednisone 20 mg tablet 60 mg (3 x 20 mg) PO DAILYWM 3 01/06/25 days #9 tabs PHYSICAL EXAM AT DISCHARGE Vital Signs: Vital Signs x48h Temp Pulse Pulse Resp BP Pulse Ox 01/06/25 12:39 70 18 01/06/25 12:33 36.7 C 80 18 163/91 H 94 01/06/25 09:38 90 16 General Appearance: positive No acute distress and Alert Eyes Bilateral: positive Normal inspection ENT: positive ENT inspection nml Neck: positive Nml inspection Respiratory: positive Chest non-tender and No respiratory distress Cardiovascular: positive Regular rate & rhythm and No murmur Peripheral Pulses: positive 2+ Abdomen: positive Non-tender Skin: positive Color nml Extremities: positive Non-tender Neurologic/Psychiatric: positive Oriented x3 LABS 01/06/25 04:45 01/06/25 04:45 FOLLOW UP Follow Up: With PCP TIME SPENT Time Spent in Discharge (Minutes): 34 Discharge Plan Discharge Patient Disposition: Home, Self Care Condition: Stable Prescriptions: New prednisone 20 mg Tablet 60 mg PO DAILYWM 3 Days Qty: 9 0RF budesonide 90 mcg/actuation aerosol powdr breath activated 1 inh inhalation BID Qty: 1 2RF Continued metoprolol succinate 50 mg tablet extended release 24 hr 50 mg PO DAILY lisinopril 20 mg tablet 20 mg PO DAILY gabapentin 300 mg capsule 300 mg PO DAILY albuterol sulfate 90 mcg/actuation HFA aerosol inhaler 2 inh INHALATION QID PRN (Reason: shortness of breath or wheezing) rosuvastatin 5 mg tablet 5 mg PO HS bupropion HCl 300 mg tablet extended release 24 hr 300 mg PO DAILY naloxone 4 mg/actuation spray,non-aerosol 1 spray INTRANASAL ONCE PRN (Reason: opioid overdose) methadone 10 mg/mL concentrate 175 mg PO DAILY Activity Restrictions: No Restrictions Diet: Regular Health Concerns: You came to the hospital because you are having difficulty breathing. You were found to be in an asthma exacerbation. You were held in the hospital so we could watch your oxygen while starting you on very high-dose steroids. Your oxygen levels have improved, and you are now safe to discharge home. I am sending you home with a few more days of an oral steroid. Please take as directed until the bottle is empty. I am also starting you on an inhaled steroid that I would like for you to take twice daily. Please follow-up with your primary care provider to ensure resolution of this problem, and for further management of your asthma Print Language: Ukrainian Patient Instructions: Inhaler Steroid Steps Stand Alone Forms: PCP List
[2025-01-06 12:34] VITALS: BP 163/91; TEMP 98.1
== END 2025-01-06 12:50 | disposition home or self-care (01) | DRG 189 ==
LOC: ED 13:51 → MS2 18:41 → MS3 19:52
PROVIDERS: ADMIT Nurse Practitioner Acute Care; ATTEND Nurse Practitioner Acute Care
DX: Z20.818 Contact with and (suspected) exposure to other bacterial communicable diseases; M77.8 Other enthesopathies, not elsewhere classified; G89.29 Other chronic pain; Z91.81 History of falling; F11.10 Opioid abuse, uncomplicated; F15.10 Other stimulant abuse, uncomplicated; Z79.899 Other long term (current) drug therapy; G47.419 Narcolepsy without cataplexy; Z20.828 Contact with and (suspected) exposure to other viral communicable diseases; G47.33 Obstructive sleep apnea (adult) (pediatric); Z79.52 Long term (current) use of systemic steroids; J96.01 Acute respiratory failure with hypoxia; F32.A Depression, unspecified; M54.9 Dorsalgia, unspecified; Z20.822 Contact with and (suspected) exposure to COVID-19; F17.200 Nicotine dependence, unspecified, uncomplicated; M50.30 Other cervical disc degeneration, unspecified cervical region; F10.21 Alcohol dependence, in remission; J45.901 Unspecified asthma with (acute) exacerbation

== ENCOUNTER 2025-04-06 09:40 | Inpatient (IN) ==
--- NOTE | 2025-04-06 09:49 | ED Physician Documentation ---
History of Present Illness Stated complaint Stated Complaint: SOA Chief complaint Chief Complaint: Resp History obtained from History obtained from: Patient and EMS Additonal information Additional information: 64-year-old male presents to the emergency department complaining of shortness of breath. Brought in by EMS. He states that he has been short of breath for the past week or so. History of polysubstance abuse. He states he has an albuterol inhaler but it has not been helping. He was hypoxic upon arrival with EMS, given a DuoNeb treatment and 125 mg of Solu-Medrol with EMS. He states he does not think that he has had fevers. He states he is feeling better since the first breathing treatment. Review of Systems Constitutional Denies: Fever or Chills Gastrointestinal Denies: Abdominal pain, Nausea or Vomiting Meds/Allgy Home Medications Ambulatory Orders Medication Instructions Recorded Confirmed albuterol sulfate 90 mcg/actuation 2 inh inhalation QI D PRN shortness 01/04/25 04/06/25 aerosol inhaler of breath or wheezing bupropion HCl 300 mg 24 hr tablet, 300 mg PO DAILY 04/06/25 extended release gabapentin 300 mg capsule 300 mg PO DAILY 01/04/25 lisinopril 20 mg tablet 20 mg PO DAILY 01/04/2503/18 metoprolol succinate 50 mg 50 mg PO DAILY 01/04/25 tablet,extended release 24 hr naloxone 4 mg/actuation nasal spray 1 spray intranasal ONCE PRN opioid 01/04/25 04/06/25 overdose rosuvastatin 5 mg tablet 5 mg PO HS 01/04/25 04/06/25 methadone 10 mg/mL oral concentrate 175 mg PO DAILY 04/06/25 budesonide 90 mcg/actuation breath 1 inh inhalation BI D #1 ea 01/06/25 04/06/25 activated powder inhaler apixaban 5 mg tablet (Eliquis) 5 mg PO BID 30 days #60 tabs 01/22/25 04/06/25 Allergies Allergies Allergy/AdvReac Type Severity Reaction Status Date / Time No Known Drug Allergies Allergy Verified 03/24/25 13:47 PFSH Active Problems All Active Problems (Updated 04/06/25 @ 13:53 by ANUSHA George) Hypoxia (Acute) COPD exacerbation (Acute) Atrial fibrillation (Acute) Polysubstance abuse (Acute) Cellulitis of leg, right (Acute) Laceration (Acute) Medical History Medical History (Updated 04/06/25 @ 13:53 by ANUSHA George) Acute hypoxic respiratory failure History of substance abuse History of alcohol dependence Chronic back pain Chronic neck pain Social History Social History (Updated 12/14/24 @ 22:22 by Farida Garcia RN) Smoking Status: Unknown if ever smoked If you are a former smoker, when did you quit? (Date/Year): Quit 30 years ago Number of Years Smoked: 2 Second hand tobacco smoke exposure: Yes Do you dip or chew tobacco?: No Do you vape?: No Patient requests smoking cessation consult: No Initiate information on smoking cessation: No Living Condition: Alone Level: Assisted Do you feel safe in your home environment?: Yes History of physical, verbal, emotional, or financial abuse?: No ETOH Use: None Frequency: Weekly ETOH - Additional Notes: pt states alcoholic, quit using alcohol 6 yrs ago. Substance Use: denies use Substance Use Details: Pt states he "smoked meth laced with LSD" POLST Patient has POLST: No Exam Exam Vital Signs: Vital Signs x48h Pulse Resp BP Pulse Ox O2 Flow Rate 04/06/25 13:57 86 20 190/110 H 92 4 04/06/25 12:35 88 24 Constitutional normal general appearance Mild respiratory distress, appears drowsy HENMT normocephalic, head/scalp atraumatic, oral mucous membranes normal and oropharynx normal Eyes PERRL Neck/C-Spine trachea midline Respiratory Very diminished breath sounds bilaterally, mild wheezing. Increased work of breathing Cardiovascular normal heart rate noted and regular rhythm noted Gastrointestinal abdomen normal to inspection, abdomen soft to palpation and nontender to palpation Extremities normal to inspection and normal to palpation Psychiatry Drowsy, oriented to person, place and time Skin skin color normal Results Vitals Vitals: Vital Signs - 24 hr 04/06/25 09:45 04/06/25 09:56 04/06/25 10:10 Temperature 36.4 C L Temperature Source Tympanic Pulse Rate 84 88 Respiratory Rate 23 22 Blood Pressure 163/110 H O2 Saturation 99 Oxygen Delivery Method Mask O2 Source Venturi mask Oxygen Flow Rate 9 If not protocol: Oxygen Flow, liters/minute 9 Pain Intensity 0 04/06/25 10:23 04/06/25 12:35 04/06/25 13:57 Temperature Temperature Source Pulse Rate 81 88 86 Respiratory Rate 24 24 20 Blood Pressure 170/140 H 190/110 H O2 Saturation 94 92 Oxygen Delivery Method O2 Source Nasal cannula Nasal cannula Oxygen Flow Rate If not protocol: Oxygen Flow, liters/minute 5 4 Pain Intensity 0 Oxygen O2 Source Nasal cannula Oxygen Flow Rate 9 Labs Labs: Laboratory Tests 04/06/25 09:53 WBC 5.6 RBC 3.92 L Hgb 11.0 L Hct 35.0 L MCV 89.3 MCH 28.1 MCHC 31.4 L RDW 14.7 Plt Count 216 MPV 10.8 Neut # (Auto) 3.9 Lymph # (Auto) 1.1 L [place] # (Auto) 0.5 Eos # (Auto) 0.1 Baso # (Auto) 0.0 Absolute Nucleated RBC 0.00 Nucleated RBC % 0.0 Sodium 138 Potassium 4.0 Chloride 104 Carbon Dioxide 28 Anion Gap 6.0 BUN 14 Creatinine 1.0 Estimated GFR (MDRD) 76 L Glucose 124 H Calcium 9.0 Phosphorus 4.5 Magnesium 2.1 Total Bilirubin 0.8 AST 24 ALT 15 Alkaline Phosphatase 58 Total Protein 6.7 Albumin 4.1 Globulin 2.6 Albumin/Globulin Ratio 1.6 PD Medical Decision Making ED course Complexity details: reviewed results, re-evaluated patient, considered differential, d/w patient and d/w cancer program consultant ED course: Patient states that he took some "bad acid" a couple of days ago and is still having a bad trip from that. He initially was quite drowsy, had used fentanyl earlier today was given 0.2 mg of Narcan, immediately woke up but is still apparently hallucinating from his recent LSD usage. He states that it is he would like to hear some Wilfredo Shrestha. Patient with what appears to be a COPD exacerbation. White blood cell count is normal. No fever. He is significantly hypoxic. Despite Solu-Medrol with EMS, several breathing treatments and 0.2 mg of Narcan. He is still on 5 L at approximately 90 to 92%. He is not on oxygen at home. Given continued hypoxia, discussed the case with the hospitalist and will place in observation for COPD exacerbation and polysubstance abuse. This document was made in part using voice recognition software. While efforts are made to proofread this document, sound alike and grammatical errors may occur. Discharge Plan Discharge Patient Disposition: ED Place in Observation Condition: Stable Clinical Impression: COPD exacerbation, Hypoxia, Polysubstance abuse Interventions: ED Admission Assessment Last Done: 04/06/25 15:00
[2025-04-06 10:01] LABS: HCT - HEMATOCRIT 35.0 % (42.0-52.0); HGB - HEMOGLOBIN 11.0 g/dL (14.0-18.0); MEAN PLATELET VOLUME 10.8 fL (7.4-11.4); NRBC ABSOLUTE COUNT (AUTO) 0.00 x10^3/uL; NUCLEATED RED BLOOD CELLS AUTO 0.0 /100WBC; PLT - PLATELET COUNT 216 10^3/uL (130-450); RED CELL DISTRIBUTION WIDTH 14.7 % (12.0-15.0)
[2025-04-06] MEDS: MAGNESIUM SULFATE 2 GRAM 2 GM/50 ML BAG IV ONE (10:08)
[2025-04-06] MEDS: ALBUTEROL NEB 2.5 MG/3 ML INH STA ×2 (10:10→14:14)
[2025-04-06 10:23] LABS: ALT ALANINE AMINOTRANSFERASE 15.0 IU/L (10-60); AST ASPARTATE AMINOTRANSFERASE 24.0 IU/L (10-42); BUN - BLOOD UREA NITROGEN 14.0 mg/dL (6-20); CARBON DIOXIDE - CO2 28.0 mmol/L (21-32); CREATININE 1.0 mg/dL (0.6-1.3); GFR - MDRD 76.0 (>89); PHOSPHORUS 4.5 mg/dL (2.5-5.0)
--- NOTE | 2025-04-06 10:35 | XRAY Report ---
PROCEDURE: XR Chest 1V INDICATIONS: dyspnea TECHNIQUE: Single frontal view of the chest was obtained COMPARISON: 03/24/2025 FINDINGS: Instrumentation: None Heart size, mediastinum and pulmonary vasculature: Heart size is enlarged. Moderate vascular congestion. Blunting the right costophrenic angle. Right basilar atelectasis and or infiltrate Osseous structures: Unremarkable IMPRESSION: Cardiomegaly, vascular congestion and right pleural effusion with right basilar atelectasis and or infiltrate Reviewed by: Dorian Krueger MD on 04/06/2025 9:31 AM [facility]DT Approved by: Dorian Krueger MD on 04/06/2025 9:31 AM AKDT Station ID: [id number]
[2025-04-06] MEDS: NALOXONE 0.4 MG/ML VIAL IVP STA (11:42)
[2025-04-06] MEDS ORDERED: ONDANSETRON ODT 4 MG TABLET TL PRN (14:38)
[2025-04-06] MEDS: ACETAMINOPHEN 325 MG TABLET PO PRN (15:58)
--- NOTE | 2025-04-06 15:58 | HISTORY & PHYSICAL EXAMINATION ---
Chief Complaint Chief Complaint Chief Complaint: SOA x 48h History of Present Illness Admitted From Admitted From:: home History Obtained From Records Reviewed: last admission January 2025 History obtained from: Patient Exam Limitations: patient appears intoxicated. History of Present Illness HPI Comment/Other: Here 64-year-old male who presents to the emergency department via EMS with complaints of shortness of breath. When EMS arrived he was 89% on room air with increased work of breathing, while on the way to the hospital he was given 2 DuoNeb treatments and 125 mg of Solu-Medrol. He appears more comfortable in the emergency department but unable to wean from 4 to 5 L via nasal cannula with sats in the mid 90s. He has an albuterol inhaler which she was tried to use at home. He has a history of polysubstance abuse. Medical urine drug screen is pending at this time but admits to smoking fentanyl and LSD this morning before coming in. In the emergency department he has been given 2 g of magnesium, 1 dose of Narcan, and 2 albuterol nebulizer treatments. His oxygen saturation remains 88 to 90% on 5 L via nasal cannula. Aside from his respiratory complaints he is doing well overall. He states he was able to eat this morning. He states his bowels are moving normally and he is passing his urine. He denies any fevers and he is not having any shortness of breath prior to this onset of symptoms. He is not have any lower extremity edema. I discussed this patient with Dr. Quach in the emergency department decision was made to admit him to observation status for acute hypoxic respiratory failure likely secondary to COPD exacerbation. Patient has established primary care at [facility]. He also goes to the methadone clinic at [facility]. He states he lives with his . He does not smoke tobacco or marijuana. arrives at bedside after admit . She states that this SOA has been ongoing for up to about 2 weeks. denies that she or anyone else at home has been sick. She states that he has not smoked any substances since around the time that he got sick. She tells me that his methadone dose is 80mg a day, and that he did get it today. he was unable to provide any of this information to me. His mental status is not adequate to participate in advanced care planning discussion. Meds/Allgy Home Medications Ambulatory Orders Medication Instructions Recorded Confirmed albuterol sulfate 90 mcg/actuation 2 inh inhalation QI D PRN shortness 01/04/25 04/06/25 aerosol inhaler of breath or wheezing bupropion HCl 300 mg 24 hr tablet, 300 mg PO DAILY 04/06/25 extended release gabapentin 300 mg capsule 300 mg PO DAILY 01/04/25 lisinopril 20 mg tablet 20 mg PO DAILY 01/04/2503/18 metoprolol succinate 50 mg 50 mg PO DAILY 01/04/25 tablet,extended release 24 hr naloxone 4 mg/actuation nasal spray 1 spray intranasal ONCE PRN opioid 01/04/25 04/06/25 overdose rosuvastatin 5 mg tablet 5 mg PO HS 01/04/25 04/06/25 methadone 10 mg/mL oral concentrate 175 mg PO DAILY 04/06/25 budesonide 90 mcg/actuation breath 1 inh inhalation BI D #1 ea 01/06/25 04/06/25 activated powder inhaler apixaban 5 mg tablet (Eliquis) 5 mg PO BID 30 days #60 tabs 01/22/25 04/06/25 Allergies Allergies Allergy/AdvReac Type Severity Reaction Status Date / Time No Known Drug Allergies Allergy Verified 03/24/25 13:47 PFSH Active Problems All Active Problems (Updated 04/06/25 @ 13:53 by ANUSHA George) Hypoxia (Acute) COPD exacerbation (Acute) Atrial fibrillation (Acute) Polysubstance abuse (Acute) Cellulitis of leg, right (Acute) Laceration (Acute) Medical History Medical History (Updated 04/06/25 @ 13:53 by ANUSHA George) Acute hypoxic respiratory failure History of substance abuse History of alcohol dependence Chronic back pain Chronic neck pain Social History Social History (Updated 04/06/25 @ 18:40 by Kosta Driscoll MD) Smoking Status: Unknown if ever smoked If you are a former smoker, when did you quit? (Date/Year): Quit 30 years ago Number of Years Smoked: 2 Second hand tobacco smoke exposure: Yes Do you dip or chew tobacco?: No Do you vape?: No Patient requests smoking cessation consult: No Initiate information on smoking cessation: No Living Condition: Alone Level: Assisted Home Mobility Equipment: Walker and Wheelchair Do you feel safe in your home environment?: Yes History of physical, verbal, emotional, or financial abuse?: No ETOH Use: None Frequency: Weekly ETOH - Additional Notes: pt states alcoholic, quit using alcohol 6 yrs ago. Substance Use: denies use Substance Use Details: Pt states he "smoked meth laced with LSD" POLST Patient has POLST: No Review of Systems Status of ROS: 10 or more systems reviewed and unremarkable except as noted in history and below Prior Level of Functionality: Patient lives independently. Is dependent on public transport but is ambulatory in the community Exam Exam Vital Signs: Vital Signs x48h Temp Pulse Pulse Resp BP BP Pulse Ox 04/06/25 21:10 36.5 C 77 18 141/96 H 98 04/06/25 20:50 04/06/25 20:50 80 20 04/06/25 14:52 36.9 C 84 18 171/106 H 96 04/06/25 14:37 78 20 167/104 H 98 O2 Flow Rate 04/06/25 21:10 3 04/06/25 20:50 3 04/06/25 20:50 3 04/06/25 14:52 4 04/06/25 14:37 Constitutional Poorly groomed male who appears older than stated age slumped on the gurney in the emergency department. HENMT normocephalic and head/scalp atraumatic Eyes Conjunctiva mildly injected. Mucous membranes are moist. Neck/C-Spine Chronic kyphosis at the thoracic area. Lymph no lymphadenopathy noted Chest inspection of chest normal Respiratory normal respiratory effort and no use of accessory muscles decreased breath sounds on the right base. no wheeze/rales/rhonchi appreciated on exam Cardiovascular normal heart rate noted and regular rhythm noted hypertensive Gastrointestinal abdomen normal to inspection and abdomen soft to palpation Back/Pelvis kyphotic deformity Extremities normal to inspection and normal to palpation Neurology no focal motor deficit noted, no sensory deficits noted and GCS 15 speech is pressured. Psychiatry oriented x3 motor agitation. Skin skin color normal and no rash Conclusion/Plan Problem List (1) Acute hypoxic respiratory failure: Plan: Discussed with Dr Driscoll in the ED. Decision was made to admit this patient to observation status for treatment of his acute hypoxic respiratory failure, likely secondary to COPD exacerbation. states that he has had a cough for almost 2 weeks. She denies anyone else in the home being sick, she has been well. I am treating his respiratory failure with supportive care- oxygen, steroids and bronchodilators. I will check respiratory PCR panel. (2) COPD exacerbation: Plan: Acute hypoxic respiratory failure with desaturation to 88 to 90% at 1 point on 5 L via nasal cannula per the emergency department doctor. Likely secondary to COPD exacerbation. Patient shows me his albuterol inhaler and tells me that he has been using that. I see budesonide inhaler listed in his home medications. I am not sure if he has been using this. I considered the diagnosis of community-acquired pneumonia as this patient does have some suggestion of infiltrate on his chest x-ray although this could also be a pleural effusion. However, the patient has not been running any fevers, he does not have an elevated white blood cell count. I think it is more reasonable to treat him for COPD exacerbation and will add antibiotics if he fails to improve. Will also consider CT of the chest if his clinical condition worsens. COPD exacerbation is likely secondary to the inhalation of noxious substances as patient does admit to smoking illicit substances. I am admitting this patient to observation status. I am checking a respiratory PCR panel to ensure that he does not have a virus that is causing this acute hypoxic respiratory failure. I have started Pulmicort nebs twice daily. He is getting DuoNebs 4 times daily. He is getting prednisone 40 mg p.o. daily. He is on supportive oxygen therapy. He has been able to wean down to 3 L via nasal cannula since arrival to the floor. (3) Atrial fibrillation: Plan: This patient has a history of atrial fibrillation and is anticoagulated on Eliquis. I have continued this medication on transfer to the floor. He is also on metoprolol 50 mg daily I have continued this as well. (4) Polysubstance abuse: Plan: The history is unclear. Pt admits to smoking fentanyl and LSD this AM, but his at bedside states that he is not doing these things. She states that he did get his methadone dose this AM, and that he gets 80mg daily, not the 175 that that was recorded at his visit here almost 3 mo ago. Medical urine drug screen was done after arrival to the floor. It is positive for oxycodone, methadone, amphetamine, methamphetamine and cannabinoids. He did have some increase in his mental status with a dose of narcan in the ED. He appears comfortable now that he is admitted to the floor. I will restart his methadone once dosing is confirmed. Plan I have spent 82 minutes in the care of this patient today. This includes time [id number], review and ordering of diagnostic imaging and laboratory studies and consultation with other providers. Monitoring the patient's signs symptoms, evaluation of medication effectiveness and patient's response to treatment. Lab Results Lab results reviewed: Yes 04/06/25 09:53 04/06/25 09:53 Diagnostic Imaging Results Diagnostic Imaging Results Comments: Chest x-ray shows cardiomegaly with vascular congestion and right pleural effusion with right basilar atelectasis and/or infiltrate. Core Measures Anticipated LOS I expect patient to be DC'd or transferred within 96 hours.: Yes DVT/VTE - Prophylaxis VTE/DVT Device ordered at admit?: Yes VTE/DVT Prophylaxis med ordered at admit?: No Not Ordered - Medical Reason: Not indicated (Laura continued)
[2025-04-06] MEDS: oxyCODONE 5 MG TABLET PO PRN (16:01)
[2025-04-06] MEDS: SODIUM CHLORIDE FLUSH 0.9% 10 ML SYRINGE IVP SCH (17:31)
[2025-04-06 20:12] LABS: GLUCOSE, URINE (UA) NEGATIVE (NEGATIVE); KETONES,URINE (UA) NEGATIVE (NEGATIVE); OCCULT BLOOD,URINE SMALL (NEGATIVE)
[2025-04-06 20:19] LABS: AMPHETAMINE SCREEN,URINE POSITIVE (NEGATIVE); BARBITURATE SCREEN,UR NEGATIVE (NEGATIVE); BENZODIAZEPINES SCREEN, URINE NEGATIVE (NEGATIVE); BUPRENORPHINE SCREEN, URINE NEGATIVE (NEGATIVE); COCAINE SCREEN URINE NEGATIVE (NEGATIVE); METHADONE SCREEN, URINE POSITIVE (NEGATIVE); METHAMPHETAMINES SCREEN, URINE POSITIVE (NEGATIVE); OPIATE SCREEN, URINE NEGATIVE (NEGATIVE); THC CANNABINOID SCREEN, URINE POSITIVE (NEGATIVE)
[2025-04-06 20:29] LABS: CASTS, URINE 6-10 Hyaline Casts /LPF; CRYSTALS,URINE 3-5 Calcium Oxalate /LPF; SQUAMOUS EPITHELIAL CELL,UR RARE Squamous (<= Few)
[2025-04-06] MEDS: BUDESONIDE 0.5 MG/2 ML NEB INH SCH (20:49)
[2025-04-06] MEDS: IPRATROPIUM/ALBUTEROL 3 ML NEB INH PRN (20:49)
[2025-04-06] MEDS: ATORVASTATIN 10 MG TABLET PO SCH (20:59)
[2025-04-06] MEDS: APIXABAN 5 MG TABLET PO SCH (20:59)
[2025-04-06] MEDS: FAMOTIDINE 20 MG/2 ML VIAL IVP SCH (21:07)
[2025-04-06] MEDS ORDERED: IPRATROPIUM/ALBUTEROL 3 ML NEB INH PRN (22:12)
[2025-04-06 22:58] LABS: CORONAVIRUS 229E-RESP PCR NOT DETECTED; CORONAVIRUS HKU1-RESP PCR NOT DETECTED; CORONAVIRUS NL63-RESP PCR NOT DETECTED; CORONAVIRUS OC43-RESP PCR NOT DETECTED; HUMAN METAPNEUMOVIRUS NOT DETECTED; INFLUENZA A- RESP PCR PANEL NOT DETECTED; RHINOVIRUS/ENTEROVIRUS NOT DETECTED; SARS-CoV-2 -RESP PCR PANEL NOT DETECTED
[2025-04-06 22:59] LABS: B. PARAPERTUSSIS- RESP PCR PAN NOT DETECTED; B. PERTUSSIS- RESP PCR PANEL NOT DETECTED; C. PNEUMONIAE- RESP PCR PANEL NOT DETECTED; INFLUENZA B - RESP PCR PANEL NOT DETECTED; M. PNEUMONIAE- RESP PCR PANEL NOT DETECTED; PARAINFLUENZA VIRUS 1 NOT DETECTED; PARAINFLUENZA VIRUS 2 NOT DETECTED; PARAINFLUENZA VIRUS 4 NOT DETECTED; RSV- RESP PCR PANEL NOT DETECTED
[2025-04-07 04:52] LABS: HCT - HEMATOCRIT 36.6 % (42.0-52.0); HGB - HEMOGLOBIN 11.2 g/dL (14.0-18.0); MEAN PLATELET VOLUME 10.9 fL (7.4-11.4); NRBC ABSOLUTE COUNT (AUTO) 0.00 x10^3/uL; NUCLEATED RED BLOOD CELLS AUTO 0.0 /100WBC; PLT - PLATELET COUNT 201 10^3/uL (130-450); RED CELL DISTRIBUTION WIDTH 14.6 % (12.0-15.0)
[2025-04-07 05:07] LABS: BUN - BLOOD UREA NITROGEN 25.0 mg/dL (6-20); CARBON DIOXIDE - CO2 26.0 mmol/L (21-32); CREATININE 1.1 mg/dL (0.6-1.3); GFR - MDRD 68.0 (>89)
[2025-04-07] MEDS: GABAPENTIN 300 MG CAPSULE PO SCH (08:26)
[2025-04-07] MEDS: METOPROLOL SUCCINATE 50 MG TABLET PO SCH (08:26)
[2025-04-07] MEDS ORDERED: METHADONE 5 MG TABLET PO SCH (09:00)
[2025-04-07] MEDS ORDERED: METHADONE 10 MG/ML PO SCH (09:00)
[2025-04-07] MEDS: METHADONE 50 MG/5 ML ORAL SYRINGE PO SCH (10:07)
[2025-04-07] MEDS: FUROSEMIDE 20 MG/2 ML VIAL IVP ONE ×2 (10:09→16:56)
--- NOTE | 2025-04-07 14:45 | PHARMACY PROGRESS NOTE ---
Best Possible Medication History Admit Date and Time: 04/06/25 [id number] Home Medications Medication Instructions Recorded Confirmed Type albuterol sulfate 90 mcg/actuation 2 inh inhalation QI D PRN shortness 01/04/25 04/06/25 History aerosol inhaler of breath or wheezing bupropion HCl 300 mg 24 hr tablet, 300 mg PO DAILY 04/06/25 History extended release gabapentin 300 mg capsule 300 mg PO DAILY 01/04/25 History lisinopril 20 mg tablet 20 mg PO DAILY 01/04/25/09/10 History metoprolol succinate 50 mg 50 mg PO DAILY 01/04/25 History tablet,extended release 24 hr naloxone 4 mg/actuation nasal spray 1 spray intranasal ONCE PRN opioid 01/04/25 04/07/25 History overdose rosuvastatin 5 mg tablet 5 mg PO HS 01/04/25 04/07/25 History methadone 10 mg/mL oral concentrate 80 mg PO DAILY 04/07/25 History budesonide 90 mcg/actuation breath 1 inh inhalation BI D #1 ea 01/06/25 04/06/25 Rx activated powder inhaler apixaban 5 mg tablet (Eliquis) 5 mg PO BID 30 days #60 tabs 01/22/25 04/06/25 Rx ondansetron 4 mg disintegrating 4 mg PO BID PRN nausea 04/07/25 04/07/25 History tablet Processed by: Pharmacy Medications reviewed in ED?: Yes Medication History completed: Yes Patient Interview: Completed Secondary Source(s): Written medication list and Insurance records [facility] Statement: Note: patient states that he takes medications as ordered although records show that some meds for 30 days supplies have not been picked up in in at least 60 days. As the person ultimately responsible for medication therapy, providers are able to order a medication from an existing home medication list in [facility] via the "Reconcile Routine" prior to Confirmation of that medication by service support representative. Such practice is discouraged except when the physician, in their clinical judgment, deems that a medical need exists for a medication without regard to pr evious use.
--- NOTE | 2025-04-07 15:21 | PROVIDER PROGRESS NOTE ---
Subjective Prog Note Date Prog Note Date: 04/07/25 Subjective Subjective: He is sitting up in bed, does not have complaints, feels that his breathing is much better. Current Medications Current Medications Current Medications: Current Medications Generic Name Dose Route Start Last Admin Trade Name Freq PRN Reason Stop Dose Admin Acetaminophen 650 mg 04/06/25 14:38 04/06/25 15:58 Acetaminophen 325 Mg Tablet PO 650 mg Q4HR PRN Administration Pain 1 to 4, or Fever Albuterol/Ipratropium 3 ml 04/06/25 14:38 04/07/25 05:40 Ipratropium/Albuterol 3 Ml Neb INH 3 ml Q4HR PRN Administration Wheezing Apixaban 5 mg 04/06/25 21:00 04/07/25 08:27 Apixaban 5 Mg Tablet PO 5 mg BID TONE Administration Atorvastatin Calcium 10 mg 04/06/25 21:00 04/06/25 20:59 Atorvastatin 10 Mg Tablet PO 10 mg QPM TONE Administration Budesonide 0.5 mg 04/06/25 21:00 04/07/25 05:40 Budesonide 0.5 Mg/2 Ml Neb INH 0.5 mg BID TONE Administration Bupropion HCl 300 mg 04/07/25 09:00 04/07/25 08:26 Bupropion Xl 150 Mg Tablet PO 300 mg DAILY TONE Administration Famotidine 20 mg 04/06/25 21:00 04/07/25 08:26 Famotidine 20 Mg/2 Ml Vial IVP 20 mg BID TONE Administration Gabapentin 300 mg 04/07/25 09:00 04/07/25 08:26 Gabapentin 300 Mg Capsule PO 300 mg DAILY TONE Administration Lisinopril 20 mg 04/07/25 09:00 04/07/25 08:26 Lisinopril 20 Mg Tablet PO 20 mg DAILY TONE Administration Methadone HCl 80 mg 04/07/25 09:30 04/07/25 10:07 Methadone 50 Mg/5 Ml Oral Syringe PO 80 mg DAILY TONE Administration Metoprolol Succinate 50 mg 04/07/25 09:00 04/07/25 08:26 Metoprolol Succinate 50 Mg Tablet PO 50 mg DAILY TONE Administration Ondansetron HCl 4 mg 04/06/25 14:38 Ondansetron Odt 4 Mg Tablet TL Q6HR PRN Nausea / Vomiting Oxycodone HCl 5 mg 04/06/25 14:38 04/06/25 16:01 Oxycodone 5 Mg Tablet PO 5 mg Q4HR PRN Administration Pain 5 to 7 Prednisone 40 mg 04/07/25 09:00 04/07/25 08:26 Prednisone 20 Mg Tablet PO 40 mg DAILY TONE Administration Sodium Chloride 10 ml 04/06/25 14:38 Sodium Chloride Flush 0.9% 10 Ml Syringe IVP PRN PRN NEEDED PER PROVIDER ORDERS Sodium Chloride 10 ml 04/06/25 17:00 04/07/25 08:27 Sodium Chloride Flush 0.9% 10 Ml Syringe IVP 10 ml 0100,0900,1700 TONE Administration Objective Vital Signs/Intake & Output Reviewed Vital Signs: Yes Vital Signs: Vital Signs x48h Temp Pulse Resp BP Pulse Ox O2 Flow Rate 04/07/25 13:26 36.6 C 75 18 146/99 H 94 3 04/07/25 07:49 36.8 C 83 20 135/88 H 98 3 Intake & Output: Intake & Output 04/04/25 04/05/25 04/06/25 04/07/25 23:59 23:59 23:59 23:59 Intake Total 290 / 290 596 / 596 Output Total 400 / 400 650 / 650 Balance -110 / -110 -54 / -54 Weight (kg) 75 kg Objective General Appearance: positive No acute distress and Alert Eyes Bilateral: positive Normal inspection and Conjunctivae nml ENT: positive ENT inspection nml Neck: positive Nml inspection Respiratory: positive No respiratory distress and Other (bilaterally decreased at bases. ); negative Wheezes, Rales or Rhonchi Cardiovascular: positive Regular rate & rhythm Abdomen: positive No distention Back: positive Nml inspection and Other (chronic kyphotic deformity) Skin: positive Color nml and No rash Extremities: positive No pedal edema Neurologic/Psychiatric: positive Oriented x3 Lab Results 04/07/25 04:12 04/07/25 04:12 Other Labs: Lab Results x24hrs 04/07/25 04/06/25 04/06/25 Range/Units 04:12 21:10 19:25 WBC 7.3 (4.8-10.8) x10^3/uL RBC 4.06 L (4.70-6.10) 10^6/uL Hgb 11.2 L (14.0-18.0) g/dL Hct 36.6 L (42.0-52.0) % MCV 90.1 (80.0-94.0) fL MCH 27.6 (27.0-31.0) pg MCHC 30.6 L (32.0-36.0) g/dL RDW 14.6 (12.0-15.0) % Plt Count 201 (130-450) 10^3/uL MPV 10.9 (7.4-11.4) fL Neut # (Auto) 6.0 (1.5-6.6) 10^3/uL Lymph # (Auto) 0.8 L (1.5-3.5) 10^3/uL [place] # (Auto) 0.5 (0.0-1.0) 10^3/uL Eos # (Auto) 0.0 (0.0-0.7) 10^3/uL Baso # (Auto) 0.0 (0.0-0.1) 10^3/uL Absolute Nucleated RBC 0.00 x10^3/uL Nucleated RBC % 0.0 /100WBC Sodium 137 (135-145) mmol/L Potassium 4.4 (3.5-4.5) mmol/L Chloride 105 (101-111) mmol/L Carbon Dioxide 26 (21-32) mmol/L Anion Gap 6.0 (6-13) BUN 25 H (6-20) mg/dL Creatinine 1.1 (0.6-1.3) mg/dL Estimated GFR (MDRD) 68 L (>89) Glucose 116 H (74-104) mg/dL Calcium 8.9 (8.5-10.3) mg/dL B-Natriuretic Peptide 2416 H (5-100) pg/mL Procalcitonin Immunoas 0.09 (<0.5) ng/mL Urine Color YELLOW Urine Clarity HAZY (CLEAR) Urine pH 6.0 (5.0-7.5) PH Ur Specific [place] >=1.030 H (1.002-1.030) Urine Protein 100 H (NEGATIVE) mg/dL Urine Glucose (UA) NEGATIVE (NEGATIVE) mg/dL Urine Ketones NEGATIVE (NEGATIVE) mg/dL Urine Occult Blood SMALL (NEGATIVE) Urine Nitrite NEGATIVE (NEGATIVE) Urine Bilirubin NEGATIVE (NEGATIVE) Urine Urobilinogen 0.2 (NORMAL) (NORMAL) E.U./dL Ur Leukocyte Esterase NEGATIVE (NEGATIVE) Urine RBC 0-5 (0-5) /HPF Urine WBC 0-3 (0-3) /HPF Ur Squamous Epith Cells RARE Squamous (<= Few) Urine Crystals 3-5 Calcium Oxalate /LPF Urine Bacteria Rare (None Seen) /HPF Urine Casts 6-10 Hyaline Casts /LPF Urine Mucus Moderate Strands Ur Microscopic Review INDICATED Urine Culture Comments NOT INDICATED Nasal Adenovirus (PCR) NOT DETECTED Nasal B. parapertussis DNA (PCR) NOT DETECTED Nasal Coronavir 229E PCR NOT DETECTED Nasal Coronavir HKU1 PCR NOT DETECTED Nasal Coronavir NL63 PCR NOT DETECTED Nasal Coronavir OC43 PCR NOT DETECTED Nasal Enterovir/Rhinovir PCR NOT DETECTED Nasal Influenza B PCR NOT DETECTED Nasal Influenza A PCR NOT DETECTED Nasal Parainfluen 1 PCR NOT DETECTED Nasal Parainfluen 2 PCR NOT DETECTED Nasal Parainfluen 3 PCR NOT DETECTED Nasal Parainfluen 4 PCR NOT DETECTED Nasal RSV (PCR) NOT DETECTED Nasal B.pertussis DNA PCR NOT DETECTED Nasal C.pneumoniae (PCR) NOT DETECTED Cash Human Metapneumo PCR NOT DETECTED Nasal M.pneumoniae (PCR) NOT DETECTED Nasal SARS-CoV-2 (PCR) NOT DETECTED Urine Opiates Screen NEGATIVE (NEGATIVE) Ur Buprenorphine Scrn NEGATIVE (NEGATIVE) Ur Oxycodone Screen POSITIVE H (NEGATIVE) Urine Methadone Screen POSITIVE H (NEGATIVE) Urine Fentanyl Screen Negative (NEGATIVE) Ur Barbiturates Screen NEGATIVE (NEGATIVE) Ur Tricyclics Screen NEGATIVE (NEGATIVE) Ur Phencyclidine Scrn NEGATIVE (NEGATIVE) Ur Amphetamine Screen POSITIVE H (NEGATIVE) U Methamphetamines Scrn POSITIVE H (NEGATIVE) U Benzodiazepines Scrn NEGATIVE (NEGATIVE) Urine Cocaine Screen NEGATIVE (NEGATIVE) U Cannabinoids Screen POSITIVE H (NEGATIVE) Ur Drug Screen Comment CUTOFF CONC BELOW: Assessment/Plan Problem List (1) Acute hypoxic respiratory failure: Impression: states that he has had a cough for almost 2 weeks. She denies anyone else in the home being sick, she has been well. I am treating his respiratory failure with supportive care- oxygen, steroids and bronchodilators. Respiratory PCR panel is negative. His BNP is 2416. I do not have much of a basis for comparison, last reading was about 6 years ago and was within normal limits. His procalcitonin is 0.9. I am continuing to entertain differential diagnosis for his acute hypoxic respiratory failure. I do not believe him to have a viral illness. With the procalcitonin negative I do not see any indication to treat him for community- acquired pneumonia. I do however suspect that he is having a CHF exacerbation in addition to his COPD exacerbation. At home he is on no diuretics. I do not have access to primary care notes. I have an echocardiogram in January of this year which is overall unremarkable. He has an ejection fraction estimated to be 55 to 60%, therefore this is heart failure with preserved ejection fraction This patient also has a rather severe kyphotic deformity of his spine. I think it is entirely possible that his respiratory mechanics are impeded by his anatomy. (2) COPD exacerbation: Impression: Acute hypoxic respiratory failure with desaturation to 88 to 90% at 1 point on 5 L via nasal cannula per the emergency department doctor. Likely secondary to COPD exacerbation. Patient shows me his albuterol inhaler and tells me that he has been using that. I see budesonide inhaler listed in his home medications. I am not sure if he has been using this. When I was at the bedside today I was able to turn the oxygen to down to 2 L. He seems to have tolerated this well, with an oxygen saturation of 97% on 2 L this afternoon. I am very hesitant to consider sending this patient home on oxygen therapy. His tells me that he has quit smoking illicit substances. When I ask her how long it has been since he has smoked illicit substances she tells me 2 days. COPD exacerbation is likely secondary to the inhalation of noxious substances as patient does admit to smoking illicit substances. I have started Pulmicort nebs twice daily. He is getting DuoNebs 4 times daily. He is getting prednisone 40 mg p.o. daily. He is on supportive oxygen therapy. He has been able to wean down to 3 L via nasal cannula since arrival to the floor. (3) Acute exacerbation of chronic heart failure: Impression: Reviewed chest imaging from admission. He does look fluid overloaded. He does not have a white blood cell count or elevated procalcitonin. He does have an elevated BNP. He is diuretic barbie barbie. I do not see any diuretics in his outpatient medications. He has not had any difficulty with ankle swelling at home. I will give him 20 mg of Lasix and see if that decreases his oxygen requirements I think this is reasonable in the setting of elevated BNP. (4) Atrial fibrillation: Impression: Chronic atrial fibrillation on Eliquis. I have continued this medication. Reviewed outpatient medication list he is on metoprolol. I have continued his metoprolol on admission. (5) Polysubstance abuse: Impression: The history is unclear. Pt admits to smoking fentanyl and LSD this AM, but his at bedside states that he is not doing these things. She states that he did get his methadone dose this AM, and that he gets 80mg daily, not the 175 that that was recorded at his visit here almost 3 mo ago. Methadone dose confirmed and reordered this morning. Medical urine drug screen was done after arrival to the floor. It is positive for oxycodone, methadone, amphetamine, methamphetamine and cannabinoids. I can explain the methadone and oxycodone as drugs that he has been administered. The amphetamine, methamphetamine and cannabinoids are things that he is ingested upon his own. He did have some increase in his mental status with a dose of narcan in the ED. He appears comfortable now that he is admitted to the floor. This patient's diagnosis and treatment plan was discussed this AM with attending physician as a part of multi disciplinary rounding meeting. I have spent 53 minutes in the care of this patient today. This includes time [id number], review and ordering of diagnostic imaging and laboratory studies Monitoring the patient's signs symptoms, evaluation of medication effectiveness and patient's response to treatment.
[2025-04-07] MEDS: SODIUM CHLORIDE FLUSH 0.9% 10 ML SYRINGE IVP PRN (20:43)
[2025-04-08 05:07] LABS: HGB - HEMOGLOBIN 11.4 g/dL (14.0-18.0); NRBC ABSOLUTE COUNT (AUTO) 0.00 x10^3/uL; NUCLEATED RED BLOOD CELLS AUTO 0.0 /100WBC
[2025-04-08 05:11] LABS: HCT - HEMATOCRIT 35.9 % (42.0-52.0); MEAN PLATELET VOLUME 11.0 fL (7.4-11.4); PLT - PLATELET COUNT 234 10^3/uL (130-450); RED CELL DISTRIBUTION WIDTH 14.6 % (12.0-15.0)
[2025-04-08 05:24] LABS: BUN - BLOOD UREA NITROGEN 35.0 mg/dL (6-20); CARBON DIOXIDE - CO2 27.0 mmol/L (21-32); CREATININE 1.3 mg/dL (0.6-1.3); GFR - MDRD 56.0 (>89)
[2025-04-08] MEDS: IPRATROPIUM/ALBUTEROL 3 ML NEB INH SCH (12:30)
--- NOTE | 2025-04-08 16:36 | PROVIDER PROGRESS NOTE ---
Subjective Prog Note Date Prog Note Date: 04/08/25 Subjective Subjective: He is feeling better earlier today. he seems to be back to his baseline. Then, I am called by RN- patient has two pocket knifes and cutting at the furniture going after squirrels. When I come in he is up and out of the bed, trying to get them out of his bed. We are able to settle him down, and get him back into bed. When I return again, he is somnolent at time. He will talk to me, and then fall asleep mid conversation. He did get some seroquel to settle him down. he does not desaturate. Current Medications Current Medications Current Medications: Current Medications Generic Name Dose Route Start Last Admin Trade Name Freq PRN Reason Stop Dose Admin Acetaminophen 650 mg 04/06/25 14:38 04/07/25 20:42 Acetaminophen 325 Mg Tablet PO 650 mg Q4HR PRN Administration Pain 1 to 4, or Fever Albuterol/Ipratropium 3 ml 04/08/25 11:00 04/08/25 12:50 Ipratropium/Albuterol 3 Ml Neb INH 3 ml RTQID TONE Administration Apixaban 5 mg 04/06/25 21:00 04/08/25 08:58 Apixaban 5 Mg Tablet PO 5 mg BID TONE Administration Atorvastatin Calcium 10 mg 04/06/25 21:00 04/07/25 20:42 Atorvastatin 10 Mg Tablet PO 10 mg QPM TONE Administration Budesonide 0.5 mg 04/06/25 21:00 04/08/25 10:08 Budesonide 0.5 Mg/2 Ml Neb INH Not Given BID TONE Bupropion HCl 300 mg 04/07/25 09:00 04/08/25 08:58 Bupropion Xl 150 Mg Tablet PO 300 mg DAILY TONE Administration Gabapentin 300 mg 04/07/25 09:00 04/08/25 08:58 Gabapentin 300 Mg Capsule PO 300 mg DAILY TONE Administration Lisinopril 20 mg 04/07/25 09:00 04/08/25 08:58 Lisinopril 20 Mg Tablet PO 20 mg DAILY TONE Administration Methadone HCl 80 mg 04/07/25 09:30 04/08/25 08:57 Methadone 50 Mg/5 Ml Oral Syringe PO 80 mg DAILY TONE Administration Metoprolol Succinate 50 mg 04/07/25 09:00 04/08/25 08:59 Metoprolol Succinate 50 Mg Tablet PO 50 mg DAILY TONE Administration Ondansetron HCl 4 mg 04/06/25 14:38 Ondansetron Odt 4 Mg Tablet TL Q6HR PRN Nausea / Vomiting Oxycodone HCl 5 mg 04/06/25 14:38 04/08/25 06:41 Oxycodone 5 Mg Tablet PO 5 mg Q4HR PRN Administration Pain 5 to 7 Prednisone 40 mg 04/07/25 09:00 04/08/25 08:58 Prednisone 20 Mg Tablet PO 40 mg DAILY TONE Administration Sodium Chloride 10 ml 04/06/25 14:38 04/07/25 20:43 Sodium Chloride Flush 0.9% 10 Ml Syringe IVP 10 ml PRN PRN Administration NEEDED PER PROVIDER ORDERS Sodium Chloride 10 ml 04/06/25 17:00 04/08/25 08:59 Sodium Chloride Flush 0.9% 10 Ml Syringe IVP 10 ml 0100,0900,1700 TONE Administration Objective Vital Signs/Intake & Output Reviewed Vital Signs: Yes Vital Signs: Vital Signs x48h Temp Pulse Pulse Resp BP BP Pulse Ox 04/08/25 15:37 36.5 C 86 24 147/98 H 96 04/08/25 12:54 82 18 04/08/25 10:53 36.5 C 82 20 152/104 H 94 O2 Flow Rate 04/08/25 15:37 1 04/08/25 12:54 04/08/25 10:53 Intake & Output: Intake & Output 04/05/25 04/06/25 04/07/25 04/08/25 23:59 23:59 23:59 23:59 Intake Total 290 / 290 956 / 956 480 / 480 Output Total 400 / 400 850 / 850 100 / 100 Balance -110 / -110 106 / 106 380 / 380 Weight (kg) 75 kg Objective General Appearance: positive Anxious and Other (he has been everything from lethargic and somnolent to agitated today) Eyes Bilateral: positive Normal inspection and PERRL ENT: positive ENT inspection nml Neck: positive Nml inspection Respiratory: positive No respiratory distress and Wheezes (end expiratory) Cardiovascular: positive Regular rate & rhythm Abdomen: positive No distention Back: positive Nml inspection Skin: positive Color nml and No rash Extremities: positive No pedal edema Neurologic/Psychiatric: positive Other (oriented to self and time today, intermittently to place. ) Lab Results 04/08/25 04:12 04/08/25 04:12 Other Labs: Lab Results x24hrs 04/08/25 Range/Units 04:12 WBC 11.1 H (4.8-10.8) x10^3/uL RBC 4.01 L (4.70-6.10) 10^6/uL Hgb 11.4 L (14.0-18.0) g/dL Hct 35.9 L (42.0-52.0) % MCV 89.5 (80.0-94.0) fL MCH 28.4 (27.0-31.0) pg MCHC 31.8 L (32.0-36.0) g/dL RDW 14.6 (12.0-15.0) % Plt Count 234 (130-450) 10^3/uL MPV 11.0 (7.4-11.4) fL Neut # (Auto) 7.8 H (1.5-6.6) 10^3/uL Lymph # (Auto) 2.4 (1.5-3.5) 10^3/uL [place] # (Auto) 0.9 (0.0-1.0) 10^3/uL Eos # (Auto) 0.0 (0.0-0.7) 10^3/uL Baso # (Auto) 0.0 (0.0-0.1) 10^3/uL Absolute Nucleated RBC 0.00 x10^3/uL Nucleated RBC % 0.0 /100WBC Sodium 137 (135-145) mmol/L Potassium 3.6 (3.5-4.5) mmol/L Chloride 102 (101-111) mmol/L Carbon Dioxide 27 (21-32) mmol/L Anion Gap 8.0 (6-13) BUN 35 H (6-20) mg/dL Creatinine 1.3 (0.6-1.3) mg/dL Estimated GFR (MDRD) 56 L (>89) Glucose 95 (74-104) mg/dL Calcium 8.7 (8.5-10.3) mg/dL Assessment/Plan Problem List (1) Acute hypoxic respiratory failure: Impression: states that he has had a cough for almost 2 weeks. She denies anyone else in the home being sick, she has been well. I am treating his respiratory failure with supportive care- oxygen, steroids and bronchodilators. Respiratory PCR panel is negative. His BNP is 2416. I do not have much of a basis for comparison, last reading was about 6 years ago and was within normal limits. His procalcitonin is 0.9. I am continuing to entertain differential diagnosis for his acute hypoxic respiratory failure. I do not believe him to have a viral illness. With the procalcitonin negative I do not see any indication to treat him for community- acquired pneumonia. I do however suspect that he is having a CHF exacerbation in addition to his COPD exacerbation. At home he is on no diuretics. I do not have access to primary care notes. I have an echocardiogram in January of this year which is overall unremarkable. He has an ejection fraction estimated to be 55 to 60%, therefore this is heart failure with preserved ejection fraction This patient also has a rather severe kyphotic deformity of his spine. I think it is entirely possible that his respiratory mechanics are impeded by his anatomy. (2) COPD exacerbation: Impression: Acute hypoxic respiratory failure with desaturation to 88 to 90% at 1 point on 5 L via nasal cannula per the emergency department doctor. Likely secondary to COPD exacerbation. Patient shows me his albuterol inhaler and tells me that he has been using that. I see budesonide inhaler listed in his home medications. I am not sure if he has been using this. When I was at the bedside today I was able to turn the oxygen off. I observed the patient's oxygen saturations for some time on room air and he remained stable. COPD exacerbation is likely secondary to the inhalation of noxious substances as patient does admit to smoking illicit substances. I have started Pulmicort nebs twice daily. He is getting DuoNebs 4 times daily. He is getting prednisone 40 mg p.o. daily. I will stop the oral prednisone due to his psychosis Due to his propensity to smoke things, I think that home oxygen should be the last option for this patient. He does have access to a nebulizer, can borrow from the neighbor. I think that he would do well on chronic nebulized meds. (3) Acute exacerbation of chronic heart failure: Impression: Reviewed chest imaging from admission. He does look fluid overloaded. He does not have a white blood cell count or elevated procalcitonin. He does have an elevated BNP. He is diuretic barbie . I do not see any diuretics in his outpatient medications. He has not had any difficulty with ankle swelling at home. I will give him 20 mg of Lasix and see if that decreases his oxygen requirements I think this is reasonable in the setting of elevated BNP. I have scheduled him on 20mg lasix oral daily. henry BMP in AM for electolytes (4) Atrial fibrillation: Impression: Chronic atrial fibrillation on Eliquis. I have continued this medication. Reviewed outpatient medication list he is on metoprolol. I have continued his metoprolol on admission. (5) Polysubstance abuse: Impression: The history is unclear. Pt admits to smoking fentanyl and LSD [employer], but his at bedside states that he is not doing these things. She states that he did get his methadone dose this AM, and that he gets 80mg daily, not the 175 that that was recorded at his visit here almost 3 mo ago. Methadone dose confirmed and reordered. Medical urine drug screen was done after arrival to the floor. It is positive for oxycodone, methadone, amphetamine, methamphetamine and cannabinoids. I can explain the methadone and oxycodone as drugs that he has been administered. The amphetamine, methamphetamine and cannabinoids are things that he is ingested upon his own. He did have some increase in his mental status with a dose of narcan in the ED. (6) Psychosis: Impression: This patient became acutely psychotic this afternoon. He did have a visitor this AM according to RNs. unclear if he ingested something. I tried to call his and got no answer, and no voicemail. I am discontinuing prednisone, as this certainly may have contributed. I gave this patient 50mg of seroquel po once, and this seems to have settled him. Will need to carefully assess for safe discharge, as he was tearing into the furniture this afternoon with a knife. This patient's diagnosis and treatment plan was discussed this AM with attending physician as a part of multi disciplinary rounding meeting. I have spent 53 minutes in the care of this patient today. This includes time [id number], review and ordering of diagnostic imaging and laboratory studies Monitoring the patient's signs symptoms, evaluation of medication effectiveness and patient's response to treatment.
[2025-04-09 06:05] LABS: HCT - HEMATOCRIT 38.4 % (42.0-52.0); HGB - HEMOGLOBIN 11.7 g/dL (14.0-18.0); MEAN PLATELET VOLUME 10.9 fL (7.4-11.4); NRBC ABSOLUTE COUNT (AUTO) 0.00 x10^3/uL; NUCLEATED RED BLOOD CELLS AUTO 0.0 /100WBC; PLT - PLATELET COUNT 197 10^3/uL (130-450); RED CELL DISTRIBUTION WIDTH 14.6 % (12.0-15.0)
[2025-04-09 06:18] LABS: BUN - BLOOD UREA NITROGEN 33.0 mg/dL (6-20); CARBON DIOXIDE - CO2 28.0 mmol/L (21-32); CREATININE 1.2 mg/dL (0.6-1.3); GFR - MDRD 61.0 (>89)
[2025-04-09] MEDS: FUROSEMIDE 20 MG TABLET PO SCH (08:35)
[2025-04-09 13:02] VITALS: TEMP 97.9
--- NOTE | 2025-04-09 13:56 | Discharge Summary ---
Discharge Summary Admit Date: 04/06/25 Discharge Date: 04/09/25 Discharging Provider: Juan Carlos Heart Primary Care Provider: Briseida Pearce Code Status: Attempt Resuscitation DIAGNOSES Admission Diagnoses: Acute hypoxic respiratory failure COPD exacerbation Acute exacerbation of CHF Atrial fibrillation Polysubstance abuse Psychosis Discharge Diagnoses with Status of Each Condition: Acute hypoxic respiratory failuresecondary to COPD/inhaled substance abuse COPD exacerbationdischarging on increased inhaler regimen Acute exacerbation of CHFresolved Atrial fibrillationchronic Polysubstance abusechronic Psychosissecondary to polysubstance abuse, possibly related to steroid use HPI History of Present Illness: Here 64-year-old male who presents to the emergency department via EMS with complaints of shortness of breath. When EMS arrived he was 89% on room air with increased work of breathing, while on the way to the hospital he was given 2 DuoNeb treatments and 125 mg of Solu-Medrol. He appears more comfortable in the emergency department but unable to wean from 4 to 5 L via nasal cannula with sats in the mid 90s. He has an albuterol inhaler which she was tried to use at home. He has a history of polysubstance abuse. Medical urine drug screen is pending at this time but admits to smoking fentanyl and LSD this morning before coming in. In the emergency department he has been given 2 g of magnesium, 1 dose of Narcan, and 2 albuterol nebulizer treatments. His oxygen saturation remains 88 to 90% on 5 L via nasal cannula. Aside from his respiratory complaints he is doing well overall. He states he was able to eat this morning. He states his bowels are moving normally and he is passing his urine. He denies any fevers and he is not having any shortness of breath prior to this onset of symptoms. He is not have any lower extremity edema. I discussed this patient with Dr. Quach in the emergency department decision was made to admit him to observation status for acute hypoxic respiratory failure likely secondary to COPD exacerbation. Patient has established primary care at [facility]. He also goes to the methadone clinic at [facility]. He states he lives with his . He does not smoke tobacco or marijuana. arrives at bedside after admit . She states that this SOA has been ongoing for up to about 2 weeks. denies that she or anyone else at home has been sick. She states that he has not smoked any substances since around the time that he got sick. She tells me that his methadone dose is 80mg a day, and that he did get it today. he was unable to provide any of this information to me. His mental status is not adequate to participate in advanced care planning discussion. HOSPITAL COURSE Hospital Course: Patient was held in the hospital and started on steroid course and DuoNebs. His respiratory status is much better today, and he is on room air. He had an episode of psychosis yesterday, nursing found him chasing imaginary squirrels with a pocket knife. He has had no episodes of this since then. It is believed that this is secondary to either his substance abuse or the steroid, so his steroid was discontinued. He continues to be stable on room air without his steroid. He is discharging home with his and instructed follow-up with PCP. I have ordered a Spiriva inhaler for him to start outpatient setting ALLERGIES Allergies Allergy/AdvReac Type Severity Reaction Status Date / Time No Known Drug Allergies Allergy Verified 03/24/25 13:47 MEDICATIONS Ambulatory Orders Medication Instructions Recorded Confirmed albuterol sulfate 90 mcg/actuation 2 inh inhalation QI D PRN shortness 01/04/25 04/06/25 aerosol inhaler of breath or wheezing bupropion HCl 300 mg 24 hr tablet, 300 mg PO DAILY 04/06/25 extended release gabapentin 300 mg capsule 300 mg PO DAILY 01/04/25 lisinopril 20 mg tablet 20 mg PO DAILY 01/04/2503/18 metoprolol succinate 50 mg 50 mg PO DAILY 01/04/25 tablet,extended release 24 hr naloxone 4 mg/actuation nasal spray 1 spray intranasal ONCE PRN opioid 01/04/25 04/07/25 overdose rosuvastatin 5 mg tablet 5 mg PO HS 01/04/25 04/07/25 methadone 10 mg/mL oral concentrate 80 mg PO DAILY 04/07/25 budesonide 90 mcg/actuation breath 1 inh inhalation BI D #1 ea 01/06/25 04/06/25 activated powder inhaler apixaban 5 mg tablet (Eliquis) 5 mg PO BID 30 days #60 tabs 01/22/25 04/06/25 ondansetron 4 mg disintegrating 4 mg PO BID PRN nausea 04/07/25 04/07/25 tablet tiotropium bromide 1.25 2 puff inhalation DAILY #4 g vasquez 04/09/25 mcg/actuation mist for inhalation (Spiriva Respimat) PHYSICAL EXAM AT DISCHARGE Vital Signs: Vital Signs x48h Temp Pulse Resp BP Pulse Ox 04/09/25 13:35 36.6 C 72 22 140/87 H 98 04/09/25 13:01 36.6 C 70 16 135/78 H 96 General Appearance: positive No acute distress and Alert Eyes Bilateral: positive Normal inspection ENT: positive ENT inspection nml Neck: positive Nml inspection Respiratory: positive Chest non-tender and No respiratory distress Cardiovascular: positive Regular rate & rhythm Abdomen: positive Non-tender Back: positive Nml inspection Extremities: positive Non-tender Neurologic/Psychiatric: positive Oriented x3 LABS 04/09/25 05:52 04/09/25 05:52 FOLLOW UP Follow Up: With PCP TIME SPENT Time Spent in Discharge (Minutes): 37 Discharge Plan Discharge Patient Disposition: 01 Home, Self Care Condition: Stable Medically Cleared Date:: 04/09/25 Prescriptions: New Spiriva Respimat 1.25 mcg/actuation mist 2 puff inhalation DAILY Qty: 4 2RF Continued metoprolol succinate 50 mg tablet extended release 24 hr 50 mg PO DAILY lisinopril 20 mg tablet 20 mg PO DAILY gabapentin 300 mg capsule 300 mg PO DAILY albuterol sulfate 90 mcg/actuation HFA aerosol inhaler 2 inh INHALATION QID PRN (Reason: shortness of breath or wheezing) rosuvastatin 5 mg tablet 5 mg PO HS bupropion HCl 300 mg tablet extended release 24 hr 300 mg PO DAILY naloxone 4 mg/actuation spray,non-aerosol 1 spray INTRANASAL ONCE PRN (Reason: opioid overdose) methadone 10 mg/mL concentrate 80 mg PO DAILY budesonide 90 mcg/actuation aerosol powdr breath activated 1 inh inhalation BID Qty: 1 2RF Eliquis 5 mg Tablet 5 mg PO BID 30 Days Qty: 60 0RF ondansetron 4 mg tablet,disintegrating 4 mg PO BID PRN (Reason: nausea) Patient Comments: DISSOLVE ONE TABLET IN MOUTH TWICE A DAY NEEDED FOR NAUSEA Activity Restrictions: No Restrictions Diet: Regular Health Concerns: You came into the hospital with difficulty breathing. You are experiencing an exacerbation of your COPD. We had you in the hospital on steroids and nebulized therapies and you have had improvement in your breathing. I am starting you on a medication called Spiriva. I would like for you to take this in addition to your budesonide. I would like for you to follow-up with your primary care provider for further management Print Language: Hebrew Patient Instructions: Tiotropium respiratory inhalation spray Spiriva Respimat Stand Alone Forms: PCP List Follow-up Care: BRISEIDA PEARCE, DO [Primary Care Provider, Internal Medicine] Vitals documented within 30 minutes of discharge?: Yes (YES)
[2025-04-09 14:18] VITALS: BP 140/87; O2SAT 98
== END 2025-04-09 14:05 | disposition home or self-care (01) | DRG 189 ==
LOC: ED 09:40 → MS2 09:40
PROVIDERS: ADMIT Physician Assistant Medical; ATTEND Physician Assistant Medical
DX: J96.01 Acute respiratory failure with hypoxia; F19.122 Other psychoactive substance abuse with intoxication with perceptual disturbances; Z87.891 Personal history of nicotine dependence; F19.151 Other psychoactive substance abuse with psychoactive substance-induced psychotic disorder with hallucinations; J44.1 Chronic obstructive pulmonary disease with (acute) exacerbation; I50.33 Acute on chronic diastolic (congestive) heart failure; I48.20 Chronic atrial fibrillation, unspecified; M40.204 Unspecified kyphosis, thoracic region